=== PATIENT | female | born 1985 | race Caucasian/White ===

== ENCOUNTER 2020-12-28 04:20 | Outpatient (CLI) | payer MEDICAID, SELFPAY ==
[2020-12-28 12:46] LABS: HGB 12.8 g/dL (11.2-15.7); MCHC 32.8 % (32.0-36.0); MCV 91.3 fL (80-95); MPV 9.5 fL (8.0-11.0); Platelet Count 310 10^3/uL (130-400); RBC 4.27 10^6/uL (3.93-5.22); RDW 13.7 % (11.7-14.6); RDW-SD 46.2 fL; WBC 7.18 10^3/uL (4.4-10.8)
[2020-12-28 13:24] LABS: Hemoglobin A1C 5.5 % (<5.7)
[2020-12-28 13:28] LABS: ALT 22 U/L (14-59); AST 14 U/L (15-37); Albumin 3.8 g/dL (3.4-5.0); Alkaline Phosphatase 51 U/L (46-116); Anion Gap 6.5 mmol/L (3-11); BUN 16 mg/dL (7-18); Bilirubin, Total 0.5 mg/dL (0.2-1.0); CO2 26.5 mmol/L (21.0-32.0); CREATININE 0.8 mg/dL (0.55-1.02); Calcium 9.1 mg/dL (8.5-10.1); Chloride 107 mmol/L (98-107); Cholesterol 189 mg/dL (<200); Glucose 94 mg/dL (74-106); HDL Cholesterol 85 mg/dL (40-60); Potassium 4.4 mmol/L (3.5-5.1); Sodium 140 mmol/L (136-145); Total Protein 6.7 g/dL (6.4-8.2)
[2020-12-28 13:41] LABS: Triglyceride < 25 mg/dL (<150)
[2020-12-28 14:47] LABS: LDL CHOLESTEROL 98 mg/dL (<100)
== END 2020-12-28 04:40 ==
PROVIDERS: PCP Nurse Practitioner Family; Visit Provider Nurse Practitioner Family
DX: Z13.1 Encounter for screening for diabetes mellitus (principal); Z13.220 Encounter for screening for lipoid disorders; Z33.1 Pregnant state, incidental
CPT/HCPCS: 36415; 80053; 80061; 83721; 85027; 83036

== ENCOUNTER 2021-01-04 03:30 | Outpatient (CLI) | payer MEDICAID, SELFPAY ==
[2021-01-05 10:08] LABS: Rubella IgG Ab (UVM) Positive (See Note)
[2021-01-05 16:34] LABS: Antimullerian Hormone 4.6 ng/mL (0.15-7.5)
== END 2021-01-04 03:31 | disposition home or self-care (01) ==
LOC: LBO 03:30
PROVIDERS: PCP Nurse Practitioner Family; Visit Provider Obstetrics & Gynecology Gynecology
DX: Z31.69 Encounter for other general counseling and advice on procreation (principal)
CPT/HCPCS: 36415; 86850; 86900; 86901; 83520; 86762

== ENCOUNTER 2021-06-28 13:12 | Outpatient (REF) | payer MEDICAID, SELFPAY ==
--- NOTE | 2021-06-28 11:00 | PAPFT_PTH ---
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
== END 2021-06-28 13:13 | disposition home or self-care (01) ==
LOC: LBN 13:12
PROVIDERS: PCP Nurse Practitioner Family; Visit Provider Advanced Practice Midwife
DX: Z12.4 Encounter for screening for malignant neoplasm of cervix (principal); Z11.51 Encounter for screening for human papillomavirus (HPV)
CPT/HCPCS: 88142; 87624

== ENCOUNTER 2021-06-28 13:37 | Outpatient (REF) | payer MEDICAID, SELFPAY ==
[2021-06-28 16:39] LABS: *AMPHETAMINES SCREEN URINE Negative (Negative); *BARBITURATES SCREEN URINE Negative (Negative); *BENZODIAZEPINES SCREEN URINE Negative (Negative); Cannabinoids THC Negative (Negative); Cocaine Screen,Urine Negative (Negative); METHADONE URINE SCREEN Negative (Negative); OPIATES URINE SCREEN Negative (Negative)
[2021-06-28 16:47] LABS: Tricyclic Antidepressants Negative (Negative)
[2021-06-29 15:00] LABS: Chlamydia Result Negative (Negative); GC Result Negative (Negative)
[2021-07-01 10:11] LABS: Buprenorphine Negative ng/mL (Cutoff: 5.0); Norbuprenorphine Negative ng/mL (Cutoff: 2.5)
== END 2021-06-28 13:38 | disposition home or self-care (01) ==
LOC: LBN 13:37
PROVIDERS: PCP Nurse Practitioner Family; Visit Provider Advanced Practice Midwife
DX: O09.511 Supervision of elderly primigravida, first trimester (principal); Z11.3 Encounter for screening for infections with a predominantly sexual mode of transmission; Z3A.10 10 weeks gestation of pregnancy
CPT/HCPCS: 80307; 87491; 87591; 87086; 87480; 87510; 87660

== ENCOUNTER 2021-06-28 15:57 | Outpatient (CLI) | payer MEDICAID, SELFPAY ==
[2021-06-28 14:37] LABS: Kit/Specimen SENT
[2021-06-28 14:44] LABS: Abs Immature Grans 0.04 10^3/uL (0.0-0.06); Absolute Basophil Count 0.07 10^3/uL (0.0-0.2); Absolute Eosinophil Count 0.21 10^3/uL (0.0-0.7); Absolute Lymphocyte Count 2.36 10^3/uL (1.2-3.4); Absolute Monocyte Count 0.48 10^3/uL (0.1-0.8); Absolute Neutrophil Count 4.47 10^3/uL (1.2-6.7); Basophils % 0.9; Eosinophils % 2.8; HGB 11.7 g/dL (11.2-15.7); Immature Grans % 0.5; Lymphocytes % 30.9; MCH 29.9 pg (27.0-33.0); MCHC 33.4 % (32.0-36.0); MCV 89.5 fL (80-95); MPV 9.3 fL (8.0-11.0); Monocytes % 6.3; Neutrophils % 58.6; Nucleated RBC 0 %; Platelet Count 292 10^3/uL (130-400); RBC 3.91 10^6/uL (3.93-5.22); RDW-SD 42.5 fL; WBC 7.63 10^3/uL (4.4-10.8)
[2021-06-28 16:09] LABS: TSH (W/Ref FT4) 0.72 uIU/mL (0.36-3.74)
[2021-06-30 09:59] LABS: Hepatitis B Surface Ag Negative (Negative)
[2021-06-30 11:32] LABS: Hepatitis C Ab w Rflx HCV PCR Negative (Negative)
[2021-06-30 11:41] LABS: Varicella IgG Antibody Positive (See Note)
[2021-06-30 11:47] LABS: Rubella IgG Ab (UVM) Positive (See Note)
[2021-06-30 12:44] LABS: HIV-1/2 Ag & Ab Screen Negative (Negative)
[2021-06-30 14:32] LABS: Syphilis Total Ab w/Reflex Nonreactive (Nonreactive)
[2021-07-06 14:47] LABS: Result Summary NEGATIVE; Specimen WB Whole Blood
== END 2021-06-28 15:58 | disposition home or self-care (01) ==
LOC: LBO 15:57
PROVIDERS: PCP Nurse Practitioner Family; Visit Provider Advanced Practice Midwife
DX: O09.511 Supervision of elderly primigravida, first trimester (principal); Z36.89 Encounter for other specified antenatal screening; Z11.4 Encounter for screening for human immunodeficiency virus [HIV]; Z11.59 Encounter for screening for other viral diseases; Z01.84 Encounter for antibody response examination; G47.01 Insomnia due to medical condition
CPT/HCPCS: 36415; 86787; 86803; 86850; 86900; 86901; 87340; 87389; 81220; 84443; 85025; 86762; 86780

== ENCOUNTER 2021-08-23 03:26 | Outpatient (CLI) | payer MEDICAID, SELFPAY ==
[2021-08-24 15:38] LABS: AFP 24.7 ng/mL; Calculated age at EDD 36 years; Cigarette smoking status non-Smoker; GA used in risk estimate Scan estimate; IVF Pregnancy No; Initial or repeat testing Initial testing; Insulin dependent diabetes No; Maternal Weight 201 lbs; Number of Fetuses 1; Prev Pregnancy w/NTD No; RECOMMENDED FOLLOW UP None.; Results Summary Normal risk
== END 2021-08-23 03:27 | disposition home or self-care (01) ==
LOC: LBO 03:26
PROVIDERS: Advanced Practice Midwife; PCP Nurse Practitioner Family; Visit Provider Advanced Practice Midwife
DX: O09.512 Supervision of elderly primigravida, second trimester (principal); Z3A.18 18 weeks gestation of pregnancy
CPT/HCPCS: 36415; 82105

== ENCOUNTER 2021-10-18 03:37 | Outpatient (CLI) | payer MEDICAID, SELFPAY ==
[2021-10-18 09:32] LABS: HCT 35.1 % (36.0-46.0); HGB 11.7 g/dL (11.2-15.7); MCH 30.9 pg (27.0-33.0); MCHC 33.3 % (32.0-36.0); MCV 92.6 fL (80-95); MPV 9.3 fL (8.0-11.0); Platelet Count 246 10^3/uL (130-400); RBC 3.79 10^6/uL (3.93-5.22); RDW-SD 43.9 fL; WBC 9.43 10^3/uL (4.4-10.8)
[2021-10-18 09:54] LABS: Glucose,1 Hr (Glucola) 81 mg/dL (80-140)
== END 2021-10-18 03:38 | disposition home or self-care (01) ==
LOC: LBO 03:38
PROVIDERS: Advanced Practice Midwife; PCP Nurse Practitioner Family; Visit Provider Advanced Practice Midwife
DX: Z34.92 Encounter for supervision of normal pregnancy, unspecified, second trimester (principal)
CPT/HCPCS: 36415; 82950; 85027

== ENCOUNTER 2021-12-10 07:49 | Outpatient (CLI) | payer MEDICAID, SELFPAY ==
[2021-12-10 16:04] VITALS: BP 137/77; PULSE 86; TEMP 36.8
[2021-12-10 16:13] VITALS: BP 137/77; PULSE 86
--- NOTE | 2021-12-10 16:43 | W.OBNST ---
Date of service: 12/10/21 Time of Service: 16:43 NST Evaluation Reason for NST Reasons for Nonstress Test: GESTATIONAL HYPERTENSION Gestational Age Gestational Age in Weeks and Days: 34 Weeks and 2Days Test and Monitor Explained Test/Monitor Explained: Test Explained, Monitor Explained and Patient Verbalized Understanding Vital Signs Blood Pressure: 137/77 Pulse: 86 Temperature: 98.2 F Urine Results Urine Protein: Positive Urine Ketones: Positive Urine Glucose: Negative Urine Blood: Negative NST Information Date on Monitor: 12/10/21 Time on Monitor: 16:05 Date off Monitor: 12/10/21 Time off Monitor: 16:36 Total Time on Monitor: 31 NST Interventions: PO Hydration NST Evaluation Patient States Movement: Present FHR Baseline: 140 Variability: Moderate 6-25 bpm Accelerations: 15x15 Decelerations: None NST Results: Reactive Note NST Note Note: NST done due to mild BP elevation noted at home. Patient admits to some stress with her Sister which are getting somewhat better. Her sister will no longer be her second support person in labor though. NST is CAT I and reassuring. BP is stable. Will be seen in office 12/13/21. We reviewed pre-eclampsia warning signs and how to contact professional development instructor CNM. SAI NST Reviewed and Verified by: Negra Beaver
[2021-12-10 16:45] VITALS: BP 137/77; PULSE 86; TEMP 36.8
== END 2021-12-10 16:45 | disposition home or self-care (01) ==
LOC: BCD 07:52 → OBS 15:56
PROVIDERS: PCP Nurse Practitioner Family; Visit Provider Advanced Practice Midwife
DX: O13.3 Gestational [pregnancy-induced] hypertension without significant proteinuria, third trimester (principal); Z3A.34 34 weeks gestation of pregnancy; Z63.79 Other stressful life events affecting family and household
CPT/HCPCS: 59025

== ENCOUNTER 2021-12-17 18:18 | Outpatient (CLI) | payer MEDICAID, SELFPAY ==
[2021-12-17 19:39] VITALS: BP 131/78; PULSE 76; TEMP 36.8
[2021-12-17 20:20] LABS: HCT 35.3 % (36.0-46.0); MCH 30.9 pg (27.0-33.0); MPV 9.5 fL (8.0-11.0); Platelet Count 271 10^3/uL (130-400); RBC 3.88 10^6/uL (3.93-5.22); RDW 13.4 % (11.7-14.6); RDW-SD 43.9 fL; WBC 9.56 10^3/uL (4.4-10.8)
--- NOTE | 2021-12-17 20:26 | PDOC.NST_ITS ---
Date of service: 12/17/21 Time of Service: 20:26 NST Evaluation Reason for NST Reasons for Nonstress Test: GESTATIONAL HYPERTENSION Gestational Age Gestational Age in Weeks and Days: 35 Weeks and 2Days Test and Monitor Explained Test/Monitor Explained: Test Explained, Monitor Explained and Patient Verbalized Understanding Vital Signs Blood Pressure: 131/78 Pulse: 76 Temperature: 98.2 F NST Information Date on Monitor: 12/17/21 Time on Monitor: 19:44 NST Interventions: PO Hydration NST Evaluation Patient States Movement: Present Note NST Note Note: BP is normotensive, NST is reactive Dependent edema is noted, +1 pitting two thirds to knee, normoreflexic Pt brought her home BP machine and compared it's reading, found to be 10-15 points higher Pt threw her BP cuff away Labs were drawn as baseline Pt's TUCKER meets criteria for migraine, she declines medication Discussed appropriate salt intake, resting in lateral position x3/day Discharged to home, will call the CNM radiation protection specialist if she desires a BP check. At 35 wks, will be seen weekly in [facility] NST Reviewed and Verified by: Shanita Shafer
[2021-12-17 20:30] VITALS: BP 131/78; PULSE 76; TEMP 36.8
[2021-12-17 20:31] LABS: ALT 14 U/L (14-59); AST 18 U/L (15-37); Albumin 2.4 g/dL (3.4-5.0); Alkaline Phosphatase 227 U/L (46-116); BUN 12 mg/dL (7-18); Bilirubin, Total 0.3 mg/dL (0.2-1.0); CREATININE 0.8 mg/dL (0.55-1.02); Calcium 8.7 mg/dL (8.5-10.1); Chloride 104 mmol/L (98-107); Glucose 100 mg/dL (74-106); Potassium 3.4 mmol/L (3.5-5.1); Sodium 137 mmol/L (136-145); Total Protein 6.2 g/dL (6.4-8.2); Uric Acid 5.2 mg/dL (2.6-6.0)
[2021-12-17 20:45] LABS: COMMENT (LAB VIEW ONLY) 35.85 mg/dL; PROTEIN 10.3 mg/dL; Prot/Crea Ur Ratio 0.28
[2021-12-19 15:15] VITALS: BP 114/66; PULSE 71
== END 2021-12-17 20:32 | disposition home or self-care (01) ==
LOC: BCD 18:21 → OBS 19:38
PROVIDERS: PCP Nurse Practitioner Family; Visit Provider Advanced Practice Midwife
DX: O13.3 Gestational [pregnancy-induced] hypertension without significant proteinuria, third trimester (principal); O12.03 Gestational edema, third trimester; O99.353 Diseases of the nervous system complicating pregnancy, third trimester; G43.909 Migraine, unspecified, not intractable, without status migrainosus; Z3A.35 35 weeks gestation of pregnancy
CPT/HCPCS: 59025; 36415; 80053; 85027; 82565; 84156; 84550

== ENCOUNTER 2021-12-27 10:11 | Outpatient (CLI) | payer MEDICAID, SELFPAY ==
[2021-12-27 10:31] VITALS: BP 130/80; PULSE 74; TEMP 36.5
[2021-12-27 10:35] VITALS: BP 130/80; PULSE 74; RESP 18; TEMP 36.5
--- NOTE | 2021-12-27 11:12 | PDOC.NST_ITS ---
Date of service: 12/27/21 Time of Service: 11:00 NST Evaluation Reason for NST Reasons for Nonstress Test: GESTATIONAL HYPERTENSION Gestational Age Gestational Age in Weeks and Days: 36 Weeks and 5Days Test and Monitor Explained Test/Monitor Explained: Patient Verbalized Understanding Vital Signs Blood Pressure: 130/80 Pulse: 74 Temperature: 97.7 F NST Information Date on Monitor: 12/27/21 Time on Monitor: 10:28 Date off Monitor: 12/27/21 Time off Monitor: 11:04 Total Time on Monitor: 36 NST Interventions: PO Hydration NST Evaluation Patient States Movement: Present FHR Baseline: 135 Variability: Moderate 6-25 bpm Accelerations: 15x15 and Prolonged Decelerations: None NST Results: Reactive Note NST Note Note: NST done to elevated BP in office today and lower leg edema, non pitting. No TUCKER's visual disturbance or epigastric pain. Baby is active. Today BP at NST is 130/80. Urine dip in office showed 100 of protein. Information Assurance Officer did consult with Dr. Guerrero and plan is to do 24 hour urine labs and patient is to call with any signs or symptoms of pre-eclampsia. She will do 24 hour urine starting tomorrow and bring urine to lab Monday. Instructions on how to obtain reviewed. Pre- eclampsia warning signs reviewed. RTO as scheduled at this time. NST Reviewed and Verified by: Negra Beaver
[2021-12-27 11:15] VITALS: BP 130/80; PULSE 74; TEMP 36.5
== END 2021-12-27 11:30 | disposition home or self-care (01) ==
LOC: BCD 10:14 → OBS 10:23
PROVIDERS: PCP Nurse Practitioner Family; Visit Provider Advanced Practice Midwife
DX: O13.3 Gestational [pregnancy-induced] hypertension without significant proteinuria, third trimester (principal); O12.13 Gestational proteinuria, third trimester; O12.03 Gestational edema, third trimester; Z3A.36 36 weeks gestation of pregnancy
CPT/HCPCS: 59025

== ENCOUNTER 2021-12-27 14:53 | Outpatient (REF) | payer MEDICAID, SELFPAY ==
[2021-12-27 16:12] LABS: *AMPHETAMINES SCREEN URINE Negative (Negative); *BARBITURATES SCREEN URINE Negative (Negative); *BENZODIAZEPINES SCREEN URINE Negative (Negative); Cannabinoids THC Negative (Negative); Cocaine Screen,Urine Negative (Negative); METHADONE URINE SCREEN Negative (Negative); OPIATES URINE SCREEN Negative (Negative)
[2021-12-27 16:13] LABS: Tricyclic Antidepressants Negative (Negative)
[2021-12-30 09:58] LABS: Buprenorphine Negative ng/mL (Cutoff: 5.0); Norbuprenorphine Negative ng/mL (Cutoff: 2.5)
== END 2021-12-27 14:54 | disposition home or self-care (01) ==
LOC: LBN 14:53
PROVIDERS: PCP Nurse Practitioner Family; Visit Provider Advanced Practice Midwife
DX: Z34.93 Encounter for supervision of normal pregnancy, unspecified, third trimester (principal)
CPT/HCPCS: 80307; 87081

== ENCOUNTER 2021-12-29 03:33 | Outpatient (CLI) | payer MEDICAID, SELFPAY ==
[2021-12-29 12:51] LABS: HCT 37.7 % (36.0-46.0); HGB 12.8 g/dL (11.2-15.7); MCH 31.8 pg (27.0-33.0); MCV 93.8 fL (80-95); MPV 9.9 fL (8.0-11.0); Platelet Count 250 10^3/uL (130-400); RBC 4.02 10^6/uL (3.93-5.22); RDW 13.4 % (11.7-14.6); RDW-SD 45.9 fL; WBC 8.74 10^3/uL (4.4-10.8)
[2021-12-29 13:03] LABS: ALT 16 U/L (14-59); AST 18 U/L (15-37); Albumin 2.3 g/dL (3.4-5.0); Alkaline Phosphatase 267 U/L (46-116); Anion Gap 9.4 mmol/L (3-11); BUN 11 mg/dL (7-18); Bilirubin, Total 0.4 mg/dL (0.2-1.0); CO2 23.6 mmol/L (21.0-32.0); CREATININE 0.6 mg/dL (0.55-1.02); Calcium 8.5 mg/dL (8.5-10.1); Chloride 103 mmol/L (98-107); Glucose 90 mg/dL (74-106); LDH 160 U/L (81-234); Sodium 136 mmol/L (136-145); Total Protein 6.2 g/dL (6.4-8.2); Uric Acid 5.1 mg/dL (2.6-6.0)
== END 2021-12-29 03:34 | disposition home or self-care (01) ==
LOC: LBO 03:33
PROVIDERS: PCP Nurse Practitioner Family; Visit Provider Advanced Practice Midwife
DX: O12.13 Gestational proteinuria, third trimester (principal); R60.0 Localized edema
CPT/HCPCS: 36415; 80053; 85027; 83615; 84550

== ENCOUNTER 2021-12-29 14:06 | Outpatient (REF) | payer MEDICAID, SELFPAY ==
[2021-12-29 19:38] LABS: Creatinine,Urine 35.66 mg/dL; PROTEIN 35.1 mg/dL (0.0-11.9)
[2021-12-29 19:41] LABS: Creatinine,24hr Ur 1.53 g/24hr (0.60-1.80); TOTAL PROTEIN,URINE TIMED 1509.3 mg/24hr (0.0-149.1); Total Volume 4300 ml
== END 2021-12-29 14:07 | disposition home or self-care (01) ==
LOC: LBN 14:06
PROVIDERS: PCP Nurse Practitioner Family; Visit Provider Advanced Practice Midwife
DX: O12.13 Gestational proteinuria, third trimester (principal); R60.0 Localized edema
CPT/HCPCS: 81050; 82570; 84155

== ENCOUNTER 2021-12-30 11:29 | Observation (INO) | payer MEDICAID, SELFPAY ==
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
[2021-12-30 13:22] VITALS: BP 146/76; PULSE 85
[2021-12-30 13:24] LABS: Source Nasal/Nares
[2021-12-30 13:25] LABS: HCT 36.6 % (36.0-46.0); HGB 12.5 g/dL (11.2-15.7); MCH 31.6 pg (27.0-33.0); MCHC 34.2 % (32.0-36.0); MCV 92.4 fL (80-95); MPV 9.8 fL (8.0-11.0); Platelet Count 252 10^3/uL (130-400); RBC 3.96 10^6/uL (3.93-5.22); RDW 13.3 % (11.7-14.6); RDW-SD 45.3 fL; WBC 8.12 10^3/uL (4.4-10.8)
[2021-12-30 13:38] LABS: ALT 14 U/L (14-59); AST 18 U/L (15-37); Albumin 2.4 g/dL (3.4-5.0); Alkaline Phosphatase 277 U/L (46-116); Anion Gap 10.4 mmol/L (3-11); BUN 12 mg/dL (7-18); Bilirubin, Total 0.5 mg/dL (0.2-1.0); CO2 23.6 mmol/L (21.0-32.0); Calcium 8.7 mg/dL (8.5-10.1); Chloride 103 mmol/L (98-107); Glucose 135 mg/dL (74-106); LDH 153 U/L (81-234); Potassium 3.9 mmol/L (3.5-5.1); Sodium 137 mmol/L (136-145); Total Protein 6.3 g/dL (6.4-8.2); Uric Acid 5.5 mg/dL (2.6-6.0)
[2021-12-30 13:42] VITALS: RESP 14; TEMP 37.1
[2021-12-30 14:09] LABS: COVID-19 PCR Negative (Negative)
[2021-12-30 14:17] VITALS: BP 139/77; PULSE 83
[2021-12-30 15:09] LABS: PROTEIN 329.5 mg/dL; Prot/Crea Ur Ratio 0.89
[2021-12-30 15:50] VITALS: BP 164/79; PULSE 75
[2021-12-30 16:16] VITALS: BP 145/87; PULSE 75
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
== END 2021-12-30 16:46 | disposition home or self-care (01) ==
PROVIDERS: Admitting Provider Advanced Practice Midwife; PCP Nurse Practitioner Family; Visit Provider Advanced Practice Midwife
DX: Z3A.37 37 weeks gestation of pregnancy; O99.353 Diseases of the nervous system complicating pregnancy, third trimester; G56.03 Carpal tunnel syndrome, bilateral upper limbs; O14.13 Severe pre-eclampsia, third trimester
CPT/HCPCS: 80053; 85027; 86850; 86900; 86901; 87635; 82565; 83615; 84156; 84550; G0378

== ENCOUNTER 2021-12-30 21:40 | Inpatient (IN) | payer MEDICAID, SELFPAY ==
[2021-12-30 20:48] VITALS: BP 152/94; PULSE 95; RESP 18; TEMP 36.8; O2SAT 99
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
[2021-12-30] MEDS: Dinoprostone-CERVICAL 10 MG VSUPP VG (22:20)
[2021-12-30 22:26] VITALS: BP 146/84; PULSE 75
[2021-12-30] MEDS: Zolpidem 5 MG TAB 10 MG PO (22:39)
[2021-12-31] VITALS (14 sets, daily range): BP systolic 122–157; BP diastolic 63–91; PULSE 71–98; RESP 14–17; TEMP 36.9–37.2
[2021-12-31] MEDS: Zolpidem 5 MG TAB 10 MG PO ×2 (00:30→20:36)
[2021-12-31 10:14] LABS: HCT 37.4 % (36.0-46.0); HGB 12.7 g/dL (11.2-15.7); MCH 31.2 pg (27.0-33.0); MCV 91.9 fL (80-95); MPV 9.7 fL (8.0-11.0); Platelet Count 264 10^3/uL (130-400); RBC 4.07 10^6/uL (3.93-5.22); RDW 13.2 % (11.7-14.6); RDW-SD 44.3 fL; WBC 8.77 10^3/uL (4.4-10.8)
[2021-12-31 10:30] LABS: ALT 14 U/L (14-59); AST 19 U/L (15-37); Albumin 2.2 g/dL (3.4-5.0); Alkaline Phosphatase 273 U/L (46-116); Anion Gap 8.6 mmol/L (3-11); BUN 15 mg/dL (7-18); Bilirubin, Total 0.4 mg/dL (0.2-1.0); CO2 23.4 mmol/L (21.0-32.0); CREATININE 0.8 mg/dL (0.55-1.02); Calcium 9.1 mg/dL (8.5-10.1); Chloride 102 mmol/L (98-107); Glucose 104 mg/dL (74-106); Potassium 3.9 mmol/L (3.5-5.1); Sodium 134 mmol/L (136-145); Total Protein 6.2 g/dL (6.4-8.2)
[2021-12-31] MEDS: miSOPROStol 25 MCG TAB PO ×4 (11:06→23:04)
[2021-12-31] MEDS: Acetaminophen 500 MG TAB 1000 MG PO (11:31)
--- NOTE | 2021-12-31 16:13 | W.PM.OBNL1 ---
Date of service: 12/31/21 Time of Service: 10:30 Informed Consent Informed Consent: Induction of Labor (ripening options reviewed an helder and benefits of both) Pelvic Exam Comments: vaginal exams deferred per patient's request Contractions Monitor Mode: External Contraction Frequency(min): every 2-3 Contraction Duration(sec): 30-50 Intensity: Mild Fetus A Monitor: External (US) Heart Rate Baseline: 130 Presentation: Cephalic Variability: Moderate (6-25 BPM) Categories: Category I FHR Rhythm: Regular Accelerations: 15 X 15 Decelerations: None Amniotic Membrane Status: Intact Assessment and Plan Assessment and plan (1) Preeclampsia: Status: Acute Assessment and plan: Labs repeated and within normal ranges. B.P. not in severe range (2) Elective induction of labor planned: Status: Acute Assessment and plan: Reviewed plan for continued cervical ripening with Dr Juarez. Cervidil has been removed and will start misporostol 25 mg PO every 4 hours and anticipate . Comfort measures. Will re-assess for cervical change when her condition warrants. Deysi has requested that cervical exams are done only if absolutely necessary. Objective Abnormal lab results 12/31/21 Range/Units 10:05 Sodium 134 L (136-145) mmol/L Alkaline Phosphatase 273 H (46-116) U/L Total Protein 6.2 L (6.4-8.2) g/dL Albumin 2.2 L (3.4-5.0) g/dL Temp Pulse Resp BP Pulse Ox 98.9 F 80 17 157/85 H 99 12/31/21 15:08 12/31/21 15:08 12/31/21 15:08 12/31/21 15:08 12/30/21 20:48 Laboratory Results WBC 8.77 10^3/uL (4.4-10.8) 12/31/21 10:05 RBC 4.07 10^6/uL (3.93-5.22) 12/31/21 10:05 Hgb 12.7 g/dL (11.2-15.7) 12/31/21 10:05 Hct 37.4 % (36.0-46.0) 12/31/21 10:05 MCV 91.9 fL (80-95) 12/31/21 10:05 MCH 31.2 pg (27.0-33.0) 12/31/21 10:05 MCHC 34.0 % (32.0-36.0) 12/31/21 10:05 RDW 13.2 % (11.7-14.6) 12/31/21 10:05 Plt Count 264 10^3/uL (130-400) 12/31/21 10:05 MPV 9.7 fL (8.0-11.0) 12/31/21 10:05 Sodium 134 mmol/L (136-145) L 12/31/21 10:05 Potassium 3.9 mmol/L (3.5-5.1) 12/31/21 10:05 Chloride 102 mmol/L (98-107) 12/31/21 10:05 Carbon Dioxide 23.4 mmol/L (21.0-32.0) 12/31/21 10:05 Anion Gap 8.6 mmol/L (3-11) 12/31/21 10:05 BUN 15 mg/dL (7-18) 12/31/21 10:05 Creatinine 0.8 mg/dL (0.55-1.02) 12/31/21 10:05 Estimated GFR/1.73 m2 >= 60.00 (mL/min/1.73m2) 12/31/21 10:05 Glucose 104 mg/dL (74-106) 12/31/21 10:05 Uric Acid 5.0 mg/dL (2.6-6.0) 12/31/21 10:05 Calcium 9.1 mg/dL (8.5-10.1) 12/31/21 10:05 Total Bilirubin 0.4 mg/dL (0.2-1.0) 12/31/21 10:05 AST 19 U/L (15-37) 12/31/21 10:05 ALT 14 U/L (14-59) 12/31/21 10:05 Alkaline Phosphatase 273 U/L (46-116) H 12/31/21 10:05 Total Protein 6.2 g/dL (6.4-8.2) L 12/31/21 10:05 Albumin 2.2 g/dL (3.4-5.0) L 12/31/21 10:05 Subjective Patient Reports: No new Complaints Interval history since last seen: Deysi slept well with ambien. She is experiencing mild contractions. BP 120-140/70 - 80 Results Hemoglobin/Hematocrit: Hgb 12.7 g/dL (11.2-15.7) 12/31/21 10:05 Hct 37.4 % (36.0-46.0) 12/31/21 10:05 Abnormal Lab Findings: Abnormal Labs 12/31/21 10:05 Sodium 134 L Alkaline Phosphatase 273 H Total Protein 6.2 L Albumin 2.2 L
--- NOTE | 2021-12-31 16:18 | W.PM.OBNL1 ---
Date of service: 12/31/21 Time of Service: 16:18 Informed Consent Informed Consent: Induction of Labor (ripening options reviewed an helder and benefits of both) Pelvic Exam Comments: deferred per patient request Contractions Monitor Mode: External Contraction Frequency(min): 2-3 Intensity: Mild Fetus A Monitor: External (US) Heart Rate Baseline: 150 Presentation: Cephalic Variability: Moderate (6-25 BPM) Categories: Category I FHR Rhythm: Regular Accelerations: 15 X 15 Decelerations: None Amniotic Membrane Status: Intact Assessment and Plan Assessment and plan (1) Elective induction of labor planned: Status: Acute Assessment and plan: continue cervical ripening (2) Preeclampsia: Status: Acute Assessment and plan: B.P. is not in severe range. normoreflexive. Continue induction of labor. Objective Abnormal lab results 12/31/21 Range/Units 10:05 Sodium 134 L (136-145) mmol/L Alkaline Phosphatase 273 H (46-116) U/L Total Protein 6.2 L (6.4-8.2) g/dL Albumin 2.2 L (3.4-5.0) g/dL Temp Pulse Resp BP Pulse Ox 98.9 F 80 17 157/85 H 99 12/31/21 15:08 12/31/21 15:08 12/31/21 15:08 12/31/21 15:08 12/30/21 20:48 Laboratory Results WBC 8.77 10^3/uL (4.4-10.8) 12/31/21 10:05 RBC 4.07 10^6/uL (3.93-5.22) 12/31/21 10:05 Hgb 12.7 g/dL (11.2-15.7) 12/31/21 10:05 Hct 37.4 % (36.0-46.0) 12/31/21 10:05 MCV 91.9 fL (80-95) 12/31/21 10:05 MCH 31.2 pg (27.0-33.0) 12/31/21 10:05 MCHC 34.0 % (32.0-36.0) 12/31/21 10:05 RDW 13.2 % (11.7-14.6) 12/31/21 10:05 Plt Count 264 10^3/uL (130-400) 12/31/21 10:05 MPV 9.7 fL (8.0-11.0) 12/31/21 10:05 Sodium 134 mmol/L (136-145) L 12/31/21 10:05 Potassium 3.9 mmol/L (3.5-5.1) 12/31/21 10:05 Chloride 102 mmol/L (98-107) 12/31/21 10:05 Carbon Dioxide 23.4 mmol/L (21.0-32.0) 12/31/21 10:05 Anion Gap 8.6 mmol/L (3-11) 12/31/21 10:05 BUN 15 mg/dL (7-18) 12/31/21 10:05 Creatinine 0.8 mg/dL (0.55-1.02) 12/31/21 10:05 Estimated GFR/1.73 m2 >= 60.00 (mL/min/1.73m2) 12/31/21 10:05 Glucose 104 mg/dL (74-106) 12/31/21 10:05 Uric Acid 5.0 mg/dL (2.6-6.0) 12/31/21 10:05 Calcium 9.1 mg/dL (8.5-10.1) 12/31/21 10:05 Total Bilirubin 0.4 mg/dL (0.2-1.0) 12/31/21 10:05 AST 19 U/L (15-37) 12/31/21 10:05 ALT 14 U/L (14-59) 12/31/21 10:05 Alkaline Phosphatase 273 U/L (46-116) H 12/31/21 10:05 Total Protein 6.2 g/dL (6.4-8.2) L 12/31/21 10:05 Albumin 2.2 g/dL (3.4-5.0) L 12/31/21 10:05 Subjective Patient Reports: No new Complaints Interval history since last seen: second dose of oral misoprostol administered at 1500. Deysi is resting comfortably. ERICH 139/91, 133/70 Results Hemoglobin/Hematocrit: Hgb 12.7 g/dL (11.2-15.7) 12/31/21 10:05 Hct 37.4 % (36.0-46.0) 12/31/21 10:05 Abnormal Lab Findings: Abnormal Labs 12/31/21 10:05 Sodium 134 L Alkaline Phosphatase 273 H Total Protein 6.2 L Albumin 2.2 L
[2022-01-01] VITALS (162 sets, daily range): BP systolic 119–157; BP diastolic 59–85; PULSE 0–119; RESP 16–18; TEMP 36.7–37
[2022-01-01] MEDS: miSOPROStol 25 MCG TAB PO ×2 (03:28→07:32)
--- NOTE | 2022-01-01 07:31 | W.PM.OBNL1 ---
Date of service: 01/01/22 Time of Service: 08:12 Informed Consent Informed Consent: Induction of Labor (ripening options reviewed an helder and benefits of both) Pelvic Exam Dilation: 0 Effacement (%): 25 station: -1 Cervix Position: anterior Vaginal Exam Presentation: Cephalic Contractions Monitor Mode: External Contraction Frequency(min): every 2-3 Intensity: Mild Fetus A Monitor: External (US) Heart Rate Baseline: 140 Presentation: Cephalic Variability: Moderate (6-25 BPM) Categories: Category I FHR Rhythm: Regular Accelerations: 15 X 15 Decelerations: None Amniotic Membrane Status: Intact Assessment and Plan Assessment and plan (1) Elective induction of labor planned: Status: Acute Assessment and plan: sixth dose of misoprostol given this morning. 25 mg Po and 25 PV. Deysi's questions answered Re; next steps of the induction. Will re-evaluate labor pattern at 1200 and consider pitocin infusion Plan reviewed with dr. Gunderson. (2) Preeclampsia: Status: Acute Assessment and plan: preeclampsia labs this morning Objective Abnormal lab results 12/31/21 Range/Units 10:05 Sodium 134 L (136-145) mmol/L Alkaline Phosphatase 273 H (46-116) U/L Total Protein 6.2 L (6.4-8.2) g/dL Albumin 2.2 L (3.4-5.0) g/dL Temp Pulse Resp BP Pulse Ox 98.6 F 79 17 119/59 L 99 12/31/21 21:58 01/01/22 05:31 12/31/21 15:08 01/01/22 05:31 12/30/21 20:48 Laboratory Results WBC 8.77 10^3/uL (4.4-10.8) 12/31/21 10:05 RBC 4.07 10^6/uL (3.93-5.22) 12/31/21 10:05 Hgb 12.7 g/dL (11.2-15.7) 12/31/21 10:05 Hct 37.4 % (36.0-46.0) 12/31/21 10:05 MCV 91.9 fL (80-95) 12/31/21 10:05 MCH 31.2 pg (27.0-33.0) 12/31/21 10:05 MCHC 34.0 % (32.0-36.0) 12/31/21 10:05 RDW 13.2 % (11.7-14.6) 12/31/21 10:05 Plt Count 264 10^3/uL (130-400) 12/31/21 10:05 MPV 9.7 fL (8.0-11.0) 12/31/21 10:05 Sodium 134 mmol/L (136-145) L 12/31/21 10:05 Potassium 3.9 mmol/L (3.5-5.1) 12/31/21 10:05 Chloride 102 mmol/L (98-107) 12/31/21 10:05 Carbon Dioxide 23.4 mmol/L (21.0-32.0) 12/31/21 10:05 Anion Gap 8.6 mmol/L (3-11) 12/31/21 10:05 BUN 15 mg/dL (7-18) 12/31/21 10:05 Creatinine 0.8 mg/dL (0.55-1.02) 12/31/21 10:05 Estimated GFR/1.73 m2 >= 60.00 (mL/min/1.73m2) 12/31/21 10:05 Glucose 104 mg/dL (74-106) 12/31/21 10:05 Uric Acid 5.0 mg/dL (2.6-6.0) 12/31/21 10:05 Calcium 9.1 mg/dL (8.5-10.1) 12/31/21 10:05 Total Bilirubin 0.4 mg/dL (0.2-1.0) 12/31/21 10:05 AST 19 U/L (15-37) 12/31/21 10:05 ALT 14 U/L (14-59) 12/31/21 10:05 Alkaline Phosphatase 273 U/L (46-116) H 12/31/21 10:05 Total Protein 6.2 g/dL (6.4-8.2) L 12/31/21 10:05 Albumin 2.2 g/dL (3.4-5.0) L 12/31/21 10:05 Subjective Patient Reports: No new Complaints Interval history since last seen: Deysi slept well last night with ambien tablet. She has many questions about the plan for tooday. She reports that she is aware of contractions but she is very comfortable. reflexes +2. Results Hemoglobin/Hematocrit: Hgb 12.7 g/dL (11.2-15.7) 12/31/21 10:05 Hct 37.4 % (36.0-46.0) 12/31/21 10:05 Abnormal Lab Findings: Abnormal Labs 12/31/21 10:05 Sodium 134 L Alkaline Phosphatase 273 H Total Protein 6.2 L Albumin 2.2 L
[2022-01-01 07:50] LABS: HCT 38.4 % (36.0-46.0); MCHC 33.9 % (32.0-36.0); MCV 91.6 fL (80-95); MPV 9.6 fL (8.0-11.0); Platelet Count 257 10^3/uL (130-400); RBC 4.19 10^6/uL (3.93-5.22); RDW 13.2 % (11.7-14.6); RDW-SD 43.9 fL; WBC 9.97 10^3/uL (4.4-10.8)
[2022-01-01] MEDS: miSOPROStol 25 MCG TAB VG (08:00)
[2022-01-01 08:04] LABS: ALT 13 U/L (14-59); AST 17 U/L (15-37); Albumin 2.2 g/dL (3.4-5.0); Alkaline Phosphatase 295 U/L (46-116); Anion Gap 10.1 mmol/L (3-11); BUN 14 mg/dL (7-18); Bilirubin, Total 0.5 mg/dL (0.2-1.0); CO2 21.9 mmol/L (21.0-32.0); CREATININE 0.7 mg/dL (0.55-1.02); Calcium 8.5 mg/dL (8.5-10.1); Chloride 103 mmol/L (98-107); Glucose 74 mg/dL (74-106); Potassium 3.9 mmol/L (3.5-5.1); Sodium 135 mmol/L (136-145); Total Protein 6.2 g/dL (6.4-8.2); Uric Acid 4.8 mg/dL (2.6-6.0)
[2022-01-01] MEDS: Acetaminophen 500 MG TAB 1000 MG PO (08:10)
--- NOTE | 2022-01-01 16:21 | W.PM.OBNL1 ---
Date of service: 01/01/22 Time of Service: 16:21 Informed Consent Informed Consent: Induction of Labor (pitocin induction vs. further ripening with cevical ripening balloon were offered) Contractions Monitor Mode: External Contraction Frequency(min): every 2-4 Contraction Duration(sec): 20-50 Intensity: Mild Fetus A Monitor: External (US) Heart Rate Baseline: 140 Variability: Moderate (6-25 BPM) Categories: Category I FHR Rhythm: Regular Accelerations: 15 X 15 Decelerations: None Amniotic Membrane Status: Intact Assessment and Plan Assessment and plan (1) Elective induction of labor planned: Status: Acute Assessment and plan: Deysi requested at 1300 to take a shower and nap which she did do. She awoke with mild contractions. The option of pitocin or cervical ripening balloon were discussed. Deysi would like to proceed with pitocin at this time. Will assess response to pitocin and re-assess for cervical change when appropriate. Deysi declines cervical exams unless necessary and due to no discomfort, I will defer for now. Plan for pitocin infusion was reviewed with Dr. Gunderson earlier who agrees (2) Preeclampsia: Status: Acute Assessment and plan: Preeclampsia panel WNL Objective Abnormal lab results 01/01/22 Range/Units 07:45 Sodium 135 L (136-145) mmol/L ALT 13 L (14-59) U/L Alkaline Phosphatase 295 H (46-116) U/L Total Protein 6.2 L (6.4-8.2) g/dL Albumin 2.2 L (3.4-5.0) g/dL Temp Pulse Resp BP Pulse Ox 98.1 F 0 L 16 125/75 99 01/01/22 12:18 01/01/22 16:16 01/01/22 12:18 01/01/22 12:18 12/30/21 20:48 Laboratory Results WBC 9.97 10^3/uL (4.4-10.8) 01/01/22 07:45 RBC 4.19 10^6/uL (3.93-5.22) 01/01/22 07:45 Hgb 13.0 g/dL (11.2-15.7) 01/01/22 07:45 Hct 38.4 % (36.0-46.0) 01/01/22 07:45 MCV 91.6 fL (80-95) 01/01/22 07:45 MCH 31.0 pg (27.0-33.0) 01/01/22 07:45 MCHC 33.9 % (32.0-36.0) 01/01/22 07:45 RDW 13.2 % (11.7-14.6) 01/01/22 07:45 Plt Count 257 10^3/uL (130-400) 01/01/22 07:45 MPV 9.6 fL (8.0-11.0) 01/01/22 07:45 Sodium 135 mmol/L (136-145) L 01/01/22 07:45 Potassium 3.9 mmol/L (3.5-5.1) 01/01/22 07:45 Chloride 103 mmol/L (98-107) 01/01/22 07:45 Carbon Dioxide 21.9 mmol/L (21.0-32.0) 01/01/22 07:45 Anion Gap 10.1 mmol/L (3-11) 01/01/22 07:45 BUN 14 mg/dL (7-18) 01/01/22 07:45 Creatinine 0.7 mg/dL (0.55-1.02) 01/01/22 07:45 Estimated GFR/1.73 m2 >= 60.00 (mL/min/1.73m2) 01/01/22 07:45 Glucose 74 mg/dL (74-106) 01/01/22 07:45 Uric Acid 4.8 mg/dL (2.6-6.0) 01/01/22 07:45 Calcium 8.5 mg/dL (8.5-10.1) 01/01/22 07:45 Total Bilirubin 0.5 mg/dL (0.2-1.0) 01/01/22 07:45 AST 17 U/L (15-37) 01/01/22 07:45 ALT 13 U/L (14-59) L 01/01/22 07:45 Alkaline Phosphatase 295 U/L (46-116) H 01/01/22 07:45 Total Protein 6.2 g/dL (6.4-8.2) L 01/01/22 07:45 Albumin 2.2 g/dL (3.4-5.0) L 01/01/22 07:45 Subjective Patient Reports: No new Complaints Interval history since last seen: B.P. 124/68-125/75. Took a shower and had a nap. Results Hemoglobin/Hematocrit: Hgb 13.0 g/dL (11.2-15.7) 01/01/22 07:45 Hct 38.4 % (36.0-46.0) 01/01/22 07:45 Abnormal Lab Findings: Abnormal Labs 12/31/21 01/01/22 10:05 07:45 Sodium 134 L 135 L ALT 13 L Alkaline Phosphatase 273 H 295 H Total Protein 6.2 L 6.2 L Albumin 2.2 L 2.2 L
[2022-01-01] MEDS: Lactated Ringers 1,000 ML 125 ML IV (17:10)
[2022-01-01] MEDS: Oxytocin/Normal Saline 30 UNIT/500 ML BAG 2 UNITS IV (17:10)
--- NOTE | 2022-01-01 20:26 | W.PM.OBNL1 ---
Date of service: 01/01/22 Time of Service: 20:26 Informed Consent Informed Consent: Induction of Labor (pitocin induction vs. further ripening with cevical ripening balloon were offered) Contractions Monitor Mode: External Contraction Frequency(min): every 2-4 Contraction Duration(sec): 30-50 Intensity: Mild Fetus A Monitor: External (US) Heart Rate Baseline: 140 Variability: Moderate (6-25 BPM) Categories: Category I FHR Rhythm: Regular Characteristics: Normal Accelerations: 15 X 15 Decelerations: None Amniotic Membrane Status: Intact Assessment and Plan Assessment and plan (1) Elective induction of labor planned: Status: Acute Assessment and plan: continue pitocin per protocol for induction of labor. Comfort measures. Deysi requests ambien for sleep and will administer that at HS. I discussed cervical ripening balloon with pitocin with Deysi and she declines the balloon due to her concerns about discomfort with the previous cervical exam. (2) Preeclampsia: Status: Acute Assessment and plan: Continue to observe B.P. readings. Will plan to repeat labs tomorrow. Objective Abnormal lab results 01/01/22 Range/Units 07:45 Sodium 135 L (136-145) mmol/L ALT 13 L (14-59) U/L Alkaline Phosphatase 295 H (46-116) U/L Total Protein 6.2 L (6.4-8.2) g/dL Albumin 2.2 L (3.4-5.0) g/dL Temp Pulse Resp BP Pulse Ox 98.4 F 98 H 18 142/83 H 99 01/01/22 19:00 01/01/22 20:24 01/01/22 19:00 01/01/22 19:12 12/30/21 20:48 Laboratory Results WBC 9.97 10^3/uL (4.4-10.8) 01/01/22 07:45 RBC 4.19 10^6/uL (3.93-5.22) 01/01/22 07:45 Hgb 13.0 g/dL (11.2-15.7) 01/01/22 07:45 Hct 38.4 % (36.0-46.0) 01/01/22 07:45 MCV 91.6 fL (80-95) 01/01/22 07:45 MCH 31.0 pg (27.0-33.0) 01/01/22 07:45 MCHC 33.9 % (32.0-36.0) 01/01/22 07:45 RDW 13.2 % (11.7-14.6) 01/01/22 07:45 Plt Count 257 10^3/uL (130-400) 01/01/22 07:45 MPV 9.6 fL (8.0-11.0) 01/01/22 07:45 Sodium 135 mmol/L (136-145) L 01/01/22 07:45 Potassium 3.9 mmol/L (3.5-5.1) 01/01/22 07:45 Chloride 103 mmol/L (98-107) 01/01/22 07:45 Carbon Dioxide 21.9 mmol/L (21.0-32.0) 01/01/22 07:45 Anion Gap 10.1 mmol/L (3-11) 01/01/22 07:45 BUN 14 mg/dL (7-18) 01/01/22 07:45 Creatinine 0.7 mg/dL (0.55-1.02) 01/01/22 07:45 Estimated GFR/1.73 m2 >= 60.00 (mL/min/1.73m2) 01/01/22 07:45 Glucose 74 mg/dL (74-106) 01/01/22 07:45 Uric Acid 4.8 mg/dL (2.6-6.0) 01/01/22 07:45 Calcium 8.5 mg/dL (8.5-10.1) 01/01/22 07:45 Total Bilirubin 0.5 mg/dL (0.2-1.0) 01/01/22 07:45 AST 17 U/L (15-37) 01/01/22 07:45 ALT 13 U/L (14-59) L 01/01/22 07:45 Alkaline Phosphatase 295 U/L (46-116) H 01/01/22 07:45 Total Protein 6.2 g/dL (6.4-8.2) L 01/01/22 07:45 Albumin 2.2 g/dL (3.4-5.0) L 01/01/22 07:45 Subjective Patient Reports: No new Complaints Interval history since last seen: Pitocin has been running for 3 1/2 hours and is at 12 mu/min. Deysi is resting comfortably on her side. 1+ pitting edema is noted in her feet and ankles. She reports very mild cramping. SVE is deferred per Deysi's request. B.P. range is 135-142/82-85. Deysi had a headache this morning and last evening which was relieved by tylenol 1000 mg PO. Results Hemoglobin/Hematocrit: Hgb 13.0 g/dL (11.2-15.7) 01/01/22 07:45 Hct 38.4 % (36.0-46.0) 01/01/22 07:45 Abnormal Lab Findings: Abnormal Labs 12/31/21 01/01/22 10:05 07:45 Sodium 134 L 135 L ALT 13 L Alkaline Phosphatase 273 H 295 H Total Protein 6.2 L 6.2 L Albumin 2.2 L 2.2 L
[2022-01-01] MEDS: Zolpidem 10 MG TAB PO (21:17)
[2022-01-02] VITALS (374 sets, daily range): BP systolic 120–175; BP diastolic 66–109; PULSE 0–123; RESP 18; TEMP 36.7–37.3
[2022-01-02] MEDS: Lactated Ringers 1,000 ML 125 ML IV (01:15)
--- NOTE | 2022-01-02 07:19 | W.PM.OBNL1 ---
Date of service: 01/02/22 Time of Service: 07:52 Informed Consent Informed Consent: Induction of Labor (continuing pitocin induction vs. further ripening with cevical ripening with misoprostol) Pelvic Exam Dilation: 0.5 Effacement (%): 25 station: -2 Cervix Position: posterior Consistency: medium Vaginal Exam Presentation: Cephalic Contractions Monitor Mode: External Contraction Frequency(min): every 3 Contraction Duration(sec): 30-60 Intensity: Mild Fetus A Monitor: External (US) Heart Rate Baseline: 145 Presentation: Cephalic Variability: Moderate (6-25 BPM) Categories: Category I Accelerations: 15 X 15 Decelerations: Variable Recurrence: Episodic (occasional variable decelerations) Amniotic Membrane Status: Intact Assessment and Plan Assessment and plan (1) Elective induction of labor planned: Status: Acute Assessment and plan: Reviewed options with Deysi including cervical ripening balloon and misoprostol. Deysi feels achey and would like to take a bath. Will attempt balloon insertion and will start msioprostol after she takes a bath. (2) Preeclampsia: Status: Acute Assessment and plan: consult with Dr. Gunderson re Deysi's progress. She agrees with the plan for misoprostol and balloon. Serum labs are not indicated at this time. Objective Abnormal lab results 01/01/22 Range/Units 07:45 Sodium 135 L (136-145) mmol/L ALT 13 L (14-59) U/L Alkaline Phosphatase 295 H (46-116) U/L Total Protein 6.2 L (6.4-8.2) g/dL Albumin 2.2 L (3.4-5.0) g/dL Temp Pulse Resp BP Pulse Ox 98.1 F 106 H 18 140/77 99 01/02/22 06:25 01/02/22 07:18 01/02/22 06:25 01/02/22 06:25 12/30/21 20:48 Laboratory Results WBC 9.97 10^3/uL (4.4-10.8) 01/01/22 07:45 RBC 4.19 10^6/uL (3.93-5.22) 01/01/22 07:45 Hgb 13.0 g/dL (11.2-15.7) 01/01/22 07:45 Hct 38.4 % (36.0-46.0) 01/01/22 07:45 MCV 91.6 fL (80-95) 01/01/22 07:45 MCH 31.0 pg (27.0-33.0) 01/01/22 07:45 MCHC 33.9 % (32.0-36.0) 01/01/22 07:45 RDW 13.2 % (11.7-14.6) 01/01/22 07:45 Plt Count 257 10^3/uL (130-400) 01/01/22 07:45 MPV 9.6 fL (8.0-11.0) 01/01/22 07:45 Sodium 135 mmol/L (136-145) L 01/01/22 07:45 Potassium 3.9 mmol/L (3.5-5.1) 01/01/22 07:45 Chloride 103 mmol/L (98-107) 01/01/22 07:45 Carbon Dioxide 21.9 mmol/L (21.0-32.0) 01/01/22 07:45 Anion Gap 10.1 mmol/L (3-11) 01/01/22 07:45 BUN 14 mg/dL (7-18) 01/01/22 07:45 Creatinine 0.7 mg/dL (0.55-1.02) 01/01/22 07:45 Estimated GFR/1.73 m2 >= 60.00 (mL/min/1.73m2) 01/01/22 07:45 Glucose 74 mg/dL (74-106) 01/01/22 07:45 Uric Acid 4.8 mg/dL (2.6-6.0) 01/01/22 07:45 Calcium 8.5 mg/dL (8.5-10.1) 01/01/22 07:45 Total Bilirubin 0.5 mg/dL (0.2-1.0) 01/01/22 07:45 AST 17 U/L (15-37) 01/01/22 07:45 ALT 13 U/L (14-59) L 01/01/22 07:45 Alkaline Phosphatase 295 U/L (46-116) H 01/01/22 07:45 Total Protein 6.2 g/dL (6.4-8.2) L 01/01/22 07:45 Albumin 2.2 g/dL (3.4-5.0) L 01/01/22 07:45 Subjective Patient Reports: No new Complaints Interval history since last seen: Pitocin is at 20 mu/min and has been running for 14 hours. Deysi was able to sleep with ambien. She awoke with a back ache and menstrual-like cramping. She is feeling very discouraged. B.P. 140-157/72-87. 1+ pitting edema of feet and ankles. She denies headache this morning. patellar reflexes +2, no clonus. Results Hemoglobin/Hematocrit: Hgb 13.0 g/dL (11.2-15.7) 01/01/22 07:45 Hct 38.4 % (36.0-46.0) 01/01/22 07:45 Abnormal Lab Findings: Abnormal Labs 12/31/21 01/01/22 10:05 07:45 Sodium 134 L 135 L ALT 13 L Alkaline Phosphatase 273 H 295 H Total Protein 6.2 L 6.2 L Albumin 2.2 L 2.2 L
--- NOTE | 2022-01-02 10:41 | W.PM.OBNL1 ---
Date of service: 01/02/22 Time of Service: 10:41 Informed Consent Informed Consent: Induction of Labor (continuing pitocin induction vs. further ripening with cevical ripening with misoprostol) Pelvic Exam Dilation: 0.5 Effacement (%): 50 station: -2 Cervix Position: posterior Consistency: medium Vaginal Exam Presentation: Cephalic (position confirmed by bedside US) Contractions Monitor Mode: External Contraction Frequency(min): every 3-5 Intensity: Mild Fetus A Monitor: External (US) Heart Rate Baseline: 145 Presentation: Cephalic Variability: Moderate (6-25 BPM) Categories: Category I FHR Rhythm: Regular Accelerations: 15 X 15 Decelerations: None Amniotic Membrane Status: Intact Assessment and Plan Assessment and plan (1) Elective induction of labor planned: Status: Acute Assessment and plan: continue with cervical ripening. Will administer misoprostol 25 mcg when she is feeling better after the balloon insertion. (2) Preeclampsia: Status: Acute Assessment and plan: B.P. 157/90 after balloon placed and she was experiencing more severe cramping. Objective Temp Pulse Resp BP Pulse Ox 98.1 F 75 18 140/77 99 01/02/22 06:25 01/02/22 10:38 01/02/22 06:25 01/02/22 06:25 12/30/21 20:48 Laboratory Results WBC 9.97 10^3/uL (4.4-10.8) 01/01/22 07:45 RBC 4.19 10^6/uL (3.93-5.22) 01/01/22 07:45 Hgb 13.0 g/dL (11.2-15.7) 01/01/22 07:45 Hct 38.4 % (36.0-46.0) 01/01/22 07:45 MCV 91.6 fL (80-95) 01/01/22 07:45 MCH 31.0 pg (27.0-33.0) 01/01/22 07:45 MCHC 33.9 % (32.0-36.0) 01/01/22 07:45 RDW 13.2 % (11.7-14.6) 01/01/22 07:45 Plt Count 257 10^3/uL (130-400) 01/01/22 07:45 MPV 9.6 fL (8.0-11.0) 01/01/22 07:45 Sodium 135 mmol/L (136-145) L 01/01/22 07:45 Potassium 3.9 mmol/L (3.5-5.1) 01/01/22 07:45 Chloride 103 mmol/L (98-107) 01/01/22 07:45 Carbon Dioxide 21.9 mmol/L (21.0-32.0) 01/01/22 07:45 Anion Gap 10.1 mmol/L (3-11) 01/01/22 07:45 BUN 14 mg/dL (7-18) 01/01/22 07:45 Creatinine 0.7 mg/dL (0.55-1.02) 01/01/22 07:45 Estimated GFR/1.73 m2 >= 60.00 (mL/min/1.73m2) 01/01/22 07:45 Glucose 74 mg/dL (74-106) 01/01/22 07:45 Uric Acid 4.8 mg/dL (2.6-6.0) 01/01/22 07:45 Calcium 8.5 mg/dL (8.5-10.1) 01/01/22 07:45 Total Bilirubin 0.5 mg/dL (0.2-1.0) 01/01/22 07:45 AST 17 U/L (15-37) 01/01/22 07:45 ALT 13 U/L (14-59) L 01/01/22 07:45 Alkaline Phosphatase 295 U/L (46-116) H 01/01/22 07:45 Total Protein 6.2 g/dL (6.4-8.2) L 01/01/22 07:45 Albumin 2.2 g/dL (3.4-5.0) L 01/01/22 07:45 Subjective Patient Reports: No new Complaints Interval history since last seen: Deysi had a bath and is feeling better. She and her Danish agree to trying the cervical ripening balloon and that was inserted with some difficulty accessing the cervical os due to posterior position. Results Hemoglobin/Hematocrit: Hgb 13.0 g/dL (11.2-15.7) 01/01/22 07:45 Hct 38.4 % (36.0-46.0) 01/01/22 07:45 Abnormal Lab Findings: Abnormal Labs 12/31/21 01/01/22 10:05 07:45 Sodium 134 L 135 L ALT 13 L Alkaline Phosphatase 273 H 295 H Total Protein 6.2 L 6.2 L Albumin 2.2 L 2.2 L Procedure Procedures: Other (cervical ripening balloon attempted with speculum visualization. Unable to visualize the os due to posterior position of the cervix. The os was palpated and the balloon was guided along my finger and secured with 600 cc fluid in each balloon. Deysi tolerated this well by using nitrous oxide. )
[2022-01-02] MEDS: miSOPROStol 25 MCG TAB PO (11:32)
--- NOTE | 2022-01-02 14:59 | W.PM.OBNL1 ---
Date of service: 01/02/22 Time of Service: 15:00 Informed Consent Informed Consent: Induction of Labor (continuing pitocin induction vs. further ripening with cevical ripening with misoprostol) Contractions Monitor Mode: External Contraction Frequency(min): every 3-5 Contraction Duration(sec): 50-60 Intensity: Mild Fetus A Monitor: External (US) Heart Rate Baseline: 150 Presentation: Cephalic Variability: Moderate (6-25 BPM) Categories: Category I FHR Rhythm: Regular Accelerations: 15 X 15 Decelerations: None Amniotic Membrane Status: Intact Assessment and Plan Assessment and plan (1) Elective induction of labor planned: Status: Acute Assessment and plan: continue misoprostol PO for cervical ripening. Will administer 50 mcg PO for next dose. Comfort measures. Anticipate . (2) Preeclampsia: Status: Acute Objective Temp Pulse Resp BP Pulse Ox 98.4 F 77 18 135/73 99 01/02/22 11:08 01/02/22 14:58 01/02/22 11:08 01/02/22 14:58 12/30/21 20:48 Laboratory Results WBC 9.97 10^3/uL (4.4-10.8) 01/01/22 07:45 RBC 4.19 10^6/uL (3.93-5.22) 01/01/22 07:45 Hgb 13.0 g/dL (11.2-15.7) 01/01/22 07:45 Hct 38.4 % (36.0-46.0) 01/01/22 07:45 MCV 91.6 fL (80-95) 01/01/22 07:45 MCH 31.0 pg (27.0-33.0) 01/01/22 07:45 MCHC 33.9 % (32.0-36.0) 01/01/22 07:45 RDW 13.2 % (11.7-14.6) 01/01/22 07:45 Plt Count 257 10^3/uL (130-400) 01/01/22 07:45 MPV 9.6 fL (8.0-11.0) 01/01/22 07:45 Sodium 135 mmol/L (136-145) L 01/01/22 07:45 Potassium 3.9 mmol/L (3.5-5.1) 01/01/22 07:45 Chloride 103 mmol/L (98-107) 01/01/22 07:45 Carbon Dioxide 21.9 mmol/L (21.0-32.0) 01/01/22 07:45 Anion Gap 10.1 mmol/L (3-11) 01/01/22 07:45 BUN 14 mg/dL (7-18) 01/01/22 07:45 Creatinine 0.7 mg/dL (0.55-1.02) 01/01/22 07:45 Estimated GFR/1.73 m2 >= 60.00 (mL/min/1.73m2) 01/01/22 07:45 Glucose 74 mg/dL (74-106) 01/01/22 07:45 Uric Acid 4.8 mg/dL (2.6-6.0) 01/01/22 07:45 Calcium 8.5 mg/dL (8.5-10.1) 01/01/22 07:45 Total Bilirubin 0.5 mg/dL (0.2-1.0) 01/01/22 07:45 AST 17 U/L (15-37) 01/01/22 07:45 ALT 13 U/L (14-59) L 01/01/22 07:45 Alkaline Phosphatase 295 U/L (46-116) H 01/01/22 07:45 Total Protein 6.2 g/dL (6.4-8.2) L 01/01/22 07:45 Albumin 2.2 g/dL (3.4-5.0) L 01/01/22 07:45 Vital Signs Reviewed: Yes Subjective Patient Reports: No new Complaints Interval history since last seen: Deysi took a nap and reported that she slept well. She received one dose of misoprostol 3 1/2 hours ago. She is using nitrous oxide occasionally on the last two contractions. B.P. is currently 135/78. She had B.P. 150-160/80-109 when she was ambulating and experiencing discomfort after the balloon was placed. Results Hemoglobin/Hematocrit: Hgb 13.0 g/dL (11.2-15.7) 01/01/22 07:45 Hct 38.4 % (36.0-46.0) 01/01/22 07:45 Abnormal Lab Findings: Abnormal Labs 12/31/21 01/01/22 10:05 07:45 Sodium 134 L 135 L ALT 13 L Alkaline Phosphatase 273 H 295 H Total Protein 6.2 L 6.2 L Albumin 2.2 L 2.2 L
[2022-01-02] MEDS: miSOPROStol 50 MCG TAB PO ×3 (15:31→23:45)
[2022-01-02] MEDS: Zolpidem 5 MG TAB 10 MG PO (23:46)
[2022-01-03] VITALS (311 sets, daily range): BP systolic 117–175; BP diastolic 60–105; PULSE 0–132; RESP 16–20; TEMP 36.1–37.1; O2SAT 93–99; BMI 40.6
--- NOTE | 2022-01-03 | POCSPONT_PTH ---
PATIENT: Deysi John LOC: OBS U#:[id number] AGE/SX: 36/F ROOM: OBS.303 RE12/30/[address]: Negra Taylor : 1985 BED: A DIS: 01/07/2022 SPEC #: [id number] RECD: 01/04/22 12:50 STATUS: STONE REQ #: [id number] COLIN: 01/03/22 00:[address]: Negra Taylor DEPT: Surgical Specimen RECD BY: Heather Starr ENTERED: 01/04/22 12:51 SP TYPE: POCSPONT FABBY DR: [place] Pang, SOTO Tissues: 1 - ,SPONTANEOUS Procedures: GROSS AND MICRO LEVEL 4 Comments: [id number]
[2022-01-03] MEDS: miSOPROStol 50 MCG TAB PO ×2 (04:55→17:41)
--- NOTE | 2022-01-03 08:16 | W.PM.OBNL1 ---
Date of service: 01/03/22 Time of Service: 08:16 Informed Consent Informed Consent: Induction of Labor (continuing pitocin induction vs. further ripening with cevical ripening with misoprostol) Pelvic Exam Dilation: 3 Effacement (%): 80 station: -2 Cervix Position: posterior Consistency: soft Vaginal Exam Presentation: Cephalic Contractions Monitor Mode: External Contraction Frequency(min): every 2-5 Contraction Duration(sec): 40-60 Intensity: Mild Fetus A Monitor: External (US) Heart Rate Baseline: 145 Variability: Moderate (6-25 BPM) Categories: Category II Accelerations: 15 X 15 Decelerations: Variable Amniotic Membrane Status: Intact Assessment and Plan Assessment and plan (1) Elective induction of labor planned: Status: Acute Assessment and plan: will plan to start pitocin at 0900 and anticipate . (2) Preeclampsia: Status: Acute Objective Temp Pulse Resp BP Pulse Ox 98.8 F 83 18 126/70 99 01/03/22 01:30 01/03/22 08:14 01/03/22 01:30 01/03/22 07:39 12/30/21 20:48 Laboratory Results WBC 9.97 10^3/uL (4.4-10.8) 01/01/22 07:45 RBC 4.19 10^6/uL (3.93-5.22) 01/01/22 07:45 Hgb 13.0 g/dL (11.2-15.7) 01/01/22 07:45 Hct 38.4 % (36.0-46.0) 01/01/22 07:45 MCV 91.6 fL (80-95) 01/01/22 07:45 MCH 31.0 pg (27.0-33.0) 01/01/22 07:45 MCHC 33.9 % (32.0-36.0) 01/01/22 07:45 RDW 13.2 % (11.7-14.6) 01/01/22 07:45 Plt Count 257 10^3/uL (130-400) 01/01/22 07:45 MPV 9.6 fL (8.0-11.0) 01/01/22 07:45 Sodium 135 mmol/L (136-145) L 01/01/22 07:45 Potassium 3.9 mmol/L (3.5-5.1) 01/01/22 07:45 Chloride 103 mmol/L (98-107) 01/01/22 07:45 Carbon Dioxide 21.9 mmol/L (21.0-32.0) 01/01/22 07:45 Anion Gap 10.1 mmol/L (3-11) 01/01/22 07:45 BUN 14 mg/dL (7-18) 01/01/22 07:45 Creatinine 0.7 mg/dL (0.55-1.02) 01/01/22 07:45 Estimated GFR/1.73 m2 >= 60.00 (mL/min/1.73m2) 01/01/22 07:45 Glucose 74 mg/dL (74-106) 01/01/22 07:45 Uric Acid 4.8 mg/dL (2.6-6.0) 01/01/22 07:45 Calcium 8.5 mg/dL (8.5-10.1) 01/01/22 07:45 Total Bilirubin 0.5 mg/dL (0.2-1.0) 01/01/22 07:45 AST 17 U/L (15-37) 01/01/22 07:45 ALT 13 U/L (14-59) L 01/01/22 07:45 Alkaline Phosphatase 295 U/L (46-116) H 01/01/22 07:45 Total Protein 6.2 g/dL (6.4-8.2) L 01/01/22 07:45 Albumin 2.2 g/dL (3.4-5.0) L 01/01/22 07:45 Subjective Patient Reports: No new Complaints Interval history since last seen: The cervical ripening balloon wasdeflated and removed at 2230 last night. Deysi slept well last night with timothy. She received 5 doses of misoprostol with the most recent being at 0500. She is experiencing mild discomfort and uses the nitrous oxide occasionally. There are occasional variable decelerations noted. B.P. has been 120-135/66-73 since 2099. 2+ pitting edema of feet and ankles. Reflexes 2+. Results Hemoglobin/Hematocrit: Hgb 13.0 g/dL (11.2-15.7) 01/01/22 07:45 Hct 38.4 % (36.0-46.0) 01/01/22 07:45 Abnormal Lab Findings: Abnormal Labs 12/31/21 01/01/22 10:05 07:45 Sodium 134 L 135 L ALT 13 L Alkaline Phosphatase 273 H 295 H Total Protein 6.2 L 6.2 L Albumin 2.2 L 2.2 L
[2022-01-03] MEDS: Acetaminophen 500 MG TAB 1000 MG PO (08:21)
[2022-01-03 09:14] LABS: HCT 39.4 % (36.0-46.0); HGB 13.6 g/dL (11.2-15.7); MCH 31.5 pg (27.0-33.0); MCHC 34.5 % (32.0-36.0); MCV 91.2 fL (80-95); MPV 10.1 fL (8.0-11.0); Platelet Count 251 10^3/uL (130-400); RBC 4.32 10^6/uL (3.93-5.22); RDW 13.1 % (11.7-14.6); RDW-SD 43.7 fL; WBC 13.79 10^3/uL (4.4-10.8)
[2022-01-03] MEDS: Oxytocin/Normal Saline 30 UNIT/500 ML BAG 2 UNITS IV (09:26)
[2022-01-03] MEDS: Normal Saline Flush 10 ML SYR IVP (09:27)
[2022-01-03] MEDS: Lactated Ringers 1,000 ML 125 ML IV ×3 (09:27→21:20)
[2022-01-03 09:32] LABS: ALT 12 U/L (14-59); AST 16 U/L (15-37); Albumin 2.1 g/dL (3.4-5.0); Alkaline Phosphatase 340 U/L (46-116); Anion Gap 10.2 mmol/L (3-11); BUN 13 mg/dL (7-18); Bilirubin, Total 0.5 mg/dL (0.2-1.0); CO2 21.8 mmol/L (21.0-32.0); CREATININE 0.8 mg/dL (0.55-1.02); Calcium 8.8 mg/dL (8.5-10.1); Chloride 103 mmol/L (98-107); Glucose 137 mg/dL (74-106); LDH 164 U/L (81-234); Potassium 3.8 mmol/L (3.5-5.1); Sodium 135 mmol/L (136-145); Total Protein 6.5 g/dL (6.4-8.2); Uric Acid 4.7 mg/dL (2.6-6.0)
--- NOTE | 2022-01-03 11:45 | W.PM.OBNL1 ---
Date of service: 01/03/22 Time of Service: 11:45 Informed Consent Informed Consent: Induction of Labor (continuing pitocin induction vs. further ripening with cevical ripening with misoprostol) Pelvic Exam Vaginal Exam Presentation: Cephalic Contractions Monitor Mode: External Contraction Frequency(min): 50-60 Contraction Duration(sec): every 2-4 Intensity: Mild Fetus A Monitor: External (US) Heart Rate Baseline: 145 Variability: Moderate (6-25 BPM) Categories: Category II Accelerations: 15 X 15 Decelerations: Variable Amniotic Membrane Status: Intact Assessment and Plan Assessment and plan (1) Elective induction of labor planned: Status: Acute Assessment and plan: continue to assess labor pattern. Anticipate NSVDcontinue to assess B.P. Dr. diane was notified of Deysi's status (2) Preeclampsia: Status: Acute Objective Abnormal lab results 01/03/22 01/03/22 Range/Units 08:55 08:55 WBC 13.79 H (4.4-10.8) 10^3/uL Sodium 135 L (136-145) mmol/L Glucose 137 H (74-106) mg/dL ALT 12 L (14-59) U/L Alkaline Phosphatase 340 H (46-116) U/L Albumin 2.1 L (3.4-5.0) g/dL Temp Pulse Resp BP Pulse Ox 98.2 F 99 H 18 138/64 99 01/03/22 09:37 01/03/22 11:42 01/03/22 01:30 01/03/22 09:37 12/30/21 20:48 Laboratory Results WBC 13.79 10^3/uL (4.4-10.8) H 01/03/22 08:55 RBC 4.32 10^6/uL (3.93-5.22) 01/03/22 08:55 Hgb 13.6 g/dL (11.2-15.7) 01/03/22 08:55 Hct 39.4 % (36.0-46.0) 01/03/22 08:55 MCV 91.2 fL (80-95) 01/03/22 08:55 MCH 31.5 pg (27.0-33.0) 01/03/22 08:55 MCHC 34.5 % (32.0-36.0) 01/03/22 08:55 RDW 13.1 % (11.7-14.6) 01/03/22 08:55 Plt Count 251 10^3/uL (130-400) 01/03/22 08:55 MPV 10.1 fL (8.0-11.0) 01/03/22 08:55 Sodium 135 mmol/L (136-145) L 01/03/22 08:55 Potassium 3.8 mmol/L (3.5-5.1) 01/03/22 08:55 Chloride 103 mmol/L (98-107) 01/03/22 08:55 Carbon Dioxide 21.8 mmol/L (21.0-32.0) 01/03/22 08:55 Anion Gap 10.2 mmol/L (3-11) 01/03/22 08:55 BUN 13 mg/dL (7-18) 01/03/22 08:55 Creatinine 0.8 mg/dL (0.55-1.02) 01/03/22 08:55 Estimated GFR/1.73 m2 >= 60.00 (mL/min/1.73m2) 01/03/22 08:55 Glucose 137 mg/dL (74-106) H 01/03/22 08:55 Uric Acid 4.7 mg/dL (2.6-6.0) 01/03/22 08:55 Calcium 8.8 mg/dL (8.5-10.1) 01/03/22 08:55 Total Bilirubin 0.5 mg/dL (0.2-1.0) 01/03/22 08:55 AST 16 U/L (15-37) 01/03/22 08:55 ALT 12 U/L (14-59) L 01/03/22 08:55 Alkaline Phosphatase 340 U/L (46-116) H 01/03/22 08:55 Lactate Dehydrogenase 164 U/L (81-234) 01/03/22 08:55 Total Protein 6.5 g/dL (6.4-8.2) 01/03/22 08:55 Albumin 2.1 g/dL (3.4-5.0) L 01/03/22 08:55 Patient ABO/Rh O Positive 01/03/22 08:55 Antibody Screen NEGATIVE 01/03/22 08:55 Subjective Patient Reports: No new Complaints Interval history since last seen: Pitocin is infusing at 10 mu/min. Deysi took a nap and reported mild discomfort. When she awoke, her membranes ruptured for a small amount of clear fluid. She got up to ambulate. B.P while ambulating is 167/97. Results Hemoglobin/Hematocrit: Hgb 13.6 g/dL (11.2-15.7) 01/03/22 08:55 Hct 39.4 % (36.0-46.0) 01/03/22 08:55 Abnormal Lab Findings: Abnormal Labs 12/31/21 01/01/22 01/03/22 10:05 07:45 08:55 WBC 13.79 H Sodium 134 L 135 L Glucose ALT 13 L Alkaline Phosphatase 273 H 295 H Total Protein 6.2 L 6.2 L Albumin 2.2 L 2.2 L 01/03/22 08:55 WBC Sodium 135 L Glucose 137 H ALT 12 L Alkaline Phosphatase 340 H Total Protein Albumin 2.1 L
--- NOTE | 2022-01-03 14:27 | ANES.PREOP_ITS ---
General Info Date of Service Date Performed: 01/03/22 Height: 5 ft 5 in Weight: 110.677 kg Body Mass Index (BMI): 40.6 Meds Allergies and Home Medications Allergies Allergy/AdvReac Type Severity Reaction Status Date / Time No Known Allergies Allergy Verified 12/30/21 22:51 Home Medication Medication Instructions Recorded glucosamine sulfate 500 mg tablet 500 mg PO DAILY 05/17/21 omega-3 fatty acids 1,000 mg 1,000 mg PO DAILY 05/17/21 capsule prenat.vits,vargas,fvp-kuzs-xovnh 1 tab PO DAILY 05/17/21 cholecalciferol (vitamin D3) 25 25 mcg PO DAILY 06/07/21 mcg (1,000 unit) capsule magnesium oxide 400 mg (241.3 mg 400 mg PO DAILY 10/18/21 magnesium) tablet diphenhydramine 25 2 tab PO QHS PRN tab 11/15/21 mg-acetaminophen 500 mg tablet Current Visit Medications: Current Medications Generic Name Dose Route Start Last Admin Trade Name Freq PRN Reason Stop Dose Admin Ringer's Solution 1,000 mls @ 125 mls/hr 01/01/22 16:30 01/02/22 07:15 IV 0 mls/hr INFUSION IFEANYI Infusion Sodium Chloride 500 mls @ 0 mls/hr 01/01/22 16:19 Saline 500ml Bag IV PRN PRN As Directed Oxytocin/Sodium Chloride 30 unit in 500 mls @ 2 mls/hr 01/01/22 16:30 01/02/22 07:15 Pitocin/Normal Saline IV 0 milliunits/min INFUSION IFEANYI 0 mls/hr Titration Protocol 2 MILLIUNITS/MIN Ringer's Solution 1,000 mls @ 125 mls/hr 01/03/22 08:30 01/03/22 09:27 IV 125 mls/hr INFUSION IFEANYI Administration Sodium Chloride 500 mls @ 0 mls/hr 01/03/22 08:26 Saline 500ml Bag IV PRN PRN As Directed Oxytocin/Sodium Chloride 30 unit in 500 mls @ 2 mls/hr 01/03/22 08:30 01/03/22 13:34 Pitocin/Normal Saline IV 16 milliunits/min INFUSION IFEANYI 16 mls/hr Titration Protocol 2 MILLIUNITS/MIN IV Miscellaneous Supplies 1 each 01/01/22 16:30 Iv Access IV DIRECTED IFEANYI IV Miscellaneous Supplies 1 each 01/03/22 08:30 Iv Access IV DIRECTED [facility] Misoprostol 50 mcg 01/02/22 20:30 01/03/22 09:27 Misoprostol 50 Mcg Tab PO Not Given Q4H [facility] Nalbuphine HCl 10 mg 01/03/22 14:24 Nalbuphine 10 Mg/Ml Amp SC 01/03/22 14:25 NOW ONE Sodium Chloride 0 ml 01/01/22 16:19 Normal Saline Flush 10 Ml Syr IVP PRN PRN Sodium Chloride 0 ml 01/03/22 08:26 01/03/22 09:27 Normal Saline Flush 10 Ml Syr IVP 10 ml PRN PRN Administration Terbutaline Sulfate 0.25 mg 12/30/21 21:40 Terbutaline 1 Mg/Ml Vial SC PRN PRN PFSH Active Problems Active Problems: Problem Status Onset Code Elective induction of labor planned Preeclampsia O14.90 Edema of both lower extremities R60.0 Proteinuria affecting in third trimester O12.13 Carpal tunnel syndrome during O26.899, G56.00 Other specified counseling Z71.89 Elderly primigravida in second trimester O09.512 Z34.90 History of alcohol use Z87.898 History of tobacco use Z87.891 Medical History Medical History (Updated 12/30/21 @ 21:46 by Negra Taylor CNM) Diabetes mellitus screening Missed menses Patient desires care Screening cholesterol level Tobacco Smoking/Tobacco Use Status: Former Tobacco Use Tobacco: How many years used: 10 Passive smoking exposure: Yes Second hand exposure: Yes Alcohol Alcohol Intake: former Year quit: 2019 Substance Use Substance use: Current Sobriety Substance use type: marijuana Details: also occassionally Hallucinogens Prental History History 1 Para 0 Hx # Term Pregnancies 0 Multiple births 0 Hx # Pregnancies 0 Ectopic pregnancies 0 AB induced 0 Hx Number of Living Children 0 AB spontaneous 0 Vital Signs and Lab Results Vital Signs Most Recent Vital Signs in EMR: Most Recent Vital Signs Temp Pulse Resp BP Pulse Ox 36.5 C 81 17 144/81 H 99 01/03/22 13:35 01/03/22 14:26 01/03/22 12:24 01/03/22 13:35 12/30/21 20:48 Lab Results Result Diagrams: 01/03/22 08:55 01/03/22 08:55 Blood Type / Crossmatch: Patient ABO/Rh O Positive 01/03/22 Antibody Screen NEGATIVE 01/03/22 Complete Blood Count: White Blood Count 13.79 10^3/uL (4.4-10.8) H 01/03/22 08:55 01/03/22 Red Blood Count 4.32 10^6/uL (3.93-5.22) 01/03/22 08:55 01/03/22 Hemoglobin 13.6 g/dL (11.2-15.7) 01/03/22 08:55 01/03/22 Hematocrit 39.4 % (36.0-46.0) 01/03/22 08:55 01/03/22 Platelet Count 251 10^3/uL (130-400) 01/03/22 08:55 01/03/22 Complete Metabolic Panel: Sodium Level 135 mmol/L (136-145) L 01/03/22 08:55 01/03/22 Potassium Level 3.8 mmol/L (3.5-5.1) 01/03/22 08:55 01/03/22 Chloride Level 103 mmol/L (98-107) 01/03/22 08:55 01/03/22 Carbon Dioxide Level 21.8 mmol/L (21.0-32.0) 01/03/22 08:55 01/03/22 Blood Urea Nitrogen 13 mg/dL (7-18) 01/03/22 08:55 01/03/22 Creatinine 0.8 mg/dL (0.55-1.02) 01/03/22 08:55 01/03/22 Estimated GFR/1.73 m2 >= 60.00 (mL/min/1.73m2) 01/03/22 08:55 01/03/22 Calcium Level 8.8 mg/dL (8.5-10.1) 01/03/22 08:55 01/03/22 Albumin 2.1 g/dL (3.4-5.0) L 01/03/22 08:55 01/03/22 Glucose Level 137 mg/dL (74-106) H 01/03/22 08:55 01/03/22 Liver Function Panel: Alanine Aminotransferase (ALT/SGPT) 12 U/L (14-59) L 01/03/22 08:55 01/03/22 Aspartate Amino Transf (AST/SGOT) 16 U/L (15-37) 01/03/22 08:55 01/03/22 Coagulation Panel: No Data to Display Cardiac Panel: No Data to Display Arterial Blood Gas: No Data to Display Venous Blood Gas: No Data to Display Pancreas Panel: No Data to Display Thyroid Panel: No Data to Display Infectious Disease: Coronavirus (COVID-19)(PCR) Negative (Negative) 12/30/21 13:05 12/30/21 Coronavirus 2019 Source Nasal/Nares 12/30/21 13:05 12/30/21 Blood Cultures: No Data to Display Toxicology Panel: Urine Amphetamines Screen Negative (Negative) 12/27/21 10:00 12/27/21 Urine Benzodiazepines Screen Negative (Negative) 12/27/21 10:00 12/27/21 Urine Barbiturates Screen Negative (Negative) 12/27/21 10:00 12/27/21 Urine Cocaine Screen Negative (Negative) 12/27/21 10:00 12/27/21 Urine Methadone Screen Negative (Negative) 12/27/21 10:00 12/27/21 Urine Opiates Screen Negative (Negative) 12/27/21 10:00 12/27/21 Ur Tricyclic Antidepressants Screen Negative (Negative) 12/27/21 10:00 12/27/21 Ur Tetrahydrocannabinol (THC) Scrn Negative (Negative) 12/27/21 10:00 12/27/21 Panel: No Data to Display Anesthesia Assessment and Plan Anesthesia History Personal History: No History of Anesthesia Complications Family History: No Family History of Anesthesia Complications Exercise Tolerance Exercise Tolerance: Metabolic Equivalents>4 Cardiac & Pulmonary Exam Cardiac Exam: Normal S1/S2 Heart Sounds Pulmonary Exam: Clear Bilateral Breath Sounds Implantable Cardiac Device Does patient have a Pacemaker or an ICD?: No Airway Exam Known Difficult Airway: No Mallampati Class: 2 Mouth Opening: Normal (> 3cm) Thyromental Distance: Greater than 3 cm Neck Range of Motion: Full ROM Neck Circumference: Normal Teeth Condition: Normal Dentition ASA Classification ASA Score: ASA 3 Emergency Case?: No NPO Status NPO Status: Full Stomach Status Status: Confirmed Anesthesia Plan Resuscitation Status: Full Code Anesthesia Technique: Epidural Anesthesia Airway Planned: Natural Airway Monitors Used: Standard Monitors
--- NOTE | 2022-01-03 15:09 | W.ANESNEU ---
Epidural/Spinal Catheter Date Performed: 01/03/22 Procedure Start: 14:40 Procedure Stop: 15:10 Requesting Provider: Negra Taylor Procedure Location: Obstetrics Reason Performed: Labor Epidural Standard Monitors Applied: Blood Pressure, SpO2 and See EMR for corresponding vital signs Patient Position: Sitting Sedation Given (Indicate Dose Given): No Sedation given Patient Mental Status: Awake Sterility: Hand Hygiene, Surgical Cap, Surgical Mask, Sterile Gloves and Chlorhexidine Procedure Location: L2-L3 Interspace Epidural Needle: Tuohy 18 Gauge Needle Length: 3.5 Inch Needle Approach: Midline Epidural Procedure: Skin Prepped, Sterile Drape Placed, 1% Lidocaine to skin and subcutaneous tissue with 25G needle, Tuohy Needle placed, ÁLVARO to Air Used, Epidural Catheter Placed, Negative CSF Flow and Tuohy Needle Removed Catheter Placed?: Catheter Placed Test Dose (Indicate Dose Given): 3ml 1.5% Lidocaine with 1:200K Epinephrine Given Loss of Resistance Depth (cm): 9 Catheter depth at skin (cm): 18 Dressing: Sorbaview Dressing Placed Epidural Provider Bolus (Indicate Dose Given): Total bolus dose given in 3-5 ml divided doses and Total Ropivacaine 0.1% with Fentanyl 2mcg/ml Given from pump (ml) Dose:: 9 mL Additives (Indicate Dose Given ): None Infusion Medication: No Infusion Started Block Level: T10 Paresthesia: None Ultrasound: Not Used Number of Attempts (See previous attempts in note section): 1 Procedure Tolerated: No Complications Procedure Outcome: Successful Performed By: [place] Garibay
--- NOTE | 2022-01-03 17:36 | PLAC_PTH ---
PATIENT: Deysi John LOC: OBS U#:[id number] AGE/SX: 36/F ROOM: OBS.303 RE12/30/[address]: Negra Taylor : 1985 BED: A DIS: 01/07/2022 SPEC #: [id number] RECD: 01/04/22 12:32 STATUS: STONE REQ #: [id number] COLIN: 01/03/22 17:[address]: Negra Taylor DEPT: Surgical Specimen RECD BY: Heather Starr ENTERED: 01/04/22 12:33 SP TYPE: PLAC OTHR DR: Montana Pang, SOTO Tissues: 1 - PLACENTA (3RD TRIMESTER) Procedures: GROSS AND MICRO LEVEL 5 Comments: [id number]
[2022-01-03] MEDS: Tranexamic Acid 1,000 MG/10 ML VIAL 1000 MG (17:47)
[2022-01-03] MEDS: Oxytocin/Normal Saline 30 UNIT/500 ML BAG 95 UNITS IV ×2 (18:25→21:19)
[2022-01-03] MEDS: Carboprost 250 MCG/ML AMP IM (18:25)
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
[2022-01-03] MEDS: ceFAZolin 2,000 MG in Normal Saline 100 ML 200 MG IVPB (18:58)
--- NOTE | 2022-01-03 19:17 | W.PM.OBNL1 ---
Date of service: 01/03/22 Time of Service: 16:30 Informed Consent Informed Consent: Induction of Labor (continuing pitocin induction vs. further ripening with cevical ripening with misoprostol) Pelvic Exam Dilation: 10 Effacement (%): 100 station: +2 Consistency: soft Pooling: Positive Comments: R Contractions Monitor Mode: External Contraction Frequency(min): every 20 Contraction Duration(sec): 60 Intensity: Moderate/Strong Fetus A Monitor: External (US) Heart Rate Baseline: 145 Presentation: Vertex Variability: Moderate (6-25 BPM) Categories: Category II Accelerations: 15 X 15 Decelerations: Variable Recurrence: Episodic Amniotic Membrane Status: Ruptured Rupture Method: Spontaneous Amniotic Fluid: Clear Amount: mod Date of Membrane Rupture: 01/03/22 Time of Membrane Rupture: 11:40 Assessment and Plan Assessment and plan (1) Elective induction of labor planned: Status: Acute Assessment and plan: Anticipate . Continue to assess maternal vital signs and FHR pattern. Dr. diane was notified by phone of the patient's status. (2) Preeclampsia: Status: Acute Objective Abnormal lab results 01/03/22 01/03/22 Range/Units 08:55 08:55 WBC 13.79 H (4.4-10.8) 10^3/uL Sodium 135 L (136-145) mmol/L Glucose 137 H (74-106) mg/dL ALT 12 L (14-59) U/L Alkaline Phosphatase 340 H (46-116) U/L Albumin 2.1 L (3.4-5.0) g/dL Temp Pulse Resp BP Pulse Ox 98.7 F 105 H 17 165/84 H 97 01/03/22 15:06 01/03/22 18:59 01/03/22 12:24 01/03/22 18:54 01/03/22 18:56 Laboratory Results WBC 13.79 10^3/uL (4.4-10.8) H 01/03/22 08:55 RBC 4.32 10^6/uL (3.93-5.22) 01/03/22 08:55 Hgb 13.6 g/dL (11.2-15.7) 01/03/22 08:55 Hct 39.4 % (36.0-46.0) 01/03/22 08:55 MCV 91.2 fL (80-95) 01/03/22 08:55 MCH 31.5 pg (27.0-33.0) 01/03/22 08:55 MCHC 34.5 % (32.0-36.0) 01/03/22 08:55 RDW 13.1 % (11.7-14.6) 01/03/22 08:55 Plt Count 251 10^3/uL (130-400) 01/03/22 08:55 MPV 10.1 fL (8.0-11.0) 01/03/22 08:55 Sodium 135 mmol/L (136-145) L 01/03/22 08:55 Potassium 3.8 mmol/L (3.5-5.1) 01/03/22 08:55 Chloride 103 mmol/L (98-107) 01/03/22 08:55 Carbon Dioxide 21.8 mmol/L (21.0-32.0) 01/03/22 08:55 Anion Gap 10.2 mmol/L (3-11) 01/03/22 08:55 BUN 13 mg/dL (7-18) 01/03/22 08:55 Creatinine 0.8 mg/dL (0.55-1.02) 01/03/22 08:55 Estimated GFR/1.73 m2 >= 60.00 (mL/min/1.73m2) 01/03/22 08:55 Glucose 137 mg/dL (74-106) H 01/03/22 08:55 Uric Acid 4.7 mg/dL (2.6-6.0) 01/03/22 08:55 Calcium 8.8 mg/dL (8.5-10.1) 01/03/22 08:55 Total Bilirubin 0.5 mg/dL (0.2-1.0) 01/03/22 08:55 AST 16 U/L (15-37) 01/03/22 08:55 ALT 12 U/L (14-59) L 01/03/22 08:55 Alkaline Phosphatase 340 U/L (46-116) H 01/03/22 08:55 Lactate Dehydrogenase 164 U/L (81-234) 01/03/22 08:55 Total Protein 6.5 g/dL (6.4-8.2) 01/03/22 08:55 Albumin 2.1 g/dL (3.4-5.0) L 01/03/22 08:55 Patient ABO/Rh O Positive 01/03/22 08:55 Antibody Screen NEGATIVE 01/03/22 08:55 Subjective Patient Reports: New Complaints Interval history since last seen: Deysi requested epidural analgesia. She had good effect and began feeling rectal pressure soon after the analgesia was in place. She was examined and was 8 cms dilated. At 1600 there was a period of elevated BP when she was lying on her right side on the dependent arm where the cuff was placed and it was 130/70 after placing on the other arm. There was a prolonged FHR decelleration at that time and the pitocin was turned to 9 mu/min and then turned off when variable decelerations continued. The FHR after that was 140s with occasional variable decellerations. and She began having an urge to push and began pushing at 1620 with excellent efforts. Results Hemoglobin/Hematocrit: Hgb 13.6 g/dL (11.2-15.7) 01/03/22 08:55 Hct 39.4 % (36.0-46.0) 01/03/22 08:55 Abnormal Lab Findings: Abnormal Labs 12/31/21 0201/03/22 10:05 07:45 08:55 WBC 13.79 H Sodium 134 L 135 L Glucose ALT 13 L Alkaline Phosphatase 273 H 295 H Total Protein 6.2 L 6.2 L Albumin 2.2 L 2.2 L 01/03/22 08:55 WBC Sodium 135 L Glucose 137 H ALT 12 L Alkaline Phosphatase 340 H Total Protein Albumin 2.1 L
--- NOTE | 2022-01-03 19:32 | W.OBDELIVERY ---
Date of service: 01/03/22 Time of Service: 19:32 OB Labor/ Delivery Information Baby A Delivery Delivery Method: Spontaneaous Presentation: Cephalic Cephalic Position: Vertex Cord Description-Baby A: 3 Vessels Amniotic Fluid: Clear Estimated Blood Loss: 1000 Delivery Outcome: Liveborn Infant Transferred: Other (skin to skin with father) Note: FHTs 140s during first stage of labor. FHTs 140s in second stage with variable decelerations. Deysi progressed to full dilation and began pushing well. Second stage huddle was done. Deysi pushed well lying on her right side. Spontaneous delivery of female delivered in APRYL position. Baby was placed on mother's abdomen and dried and stimulated. Spontaneous cry. A short cord was noted and a knot around the baby's left foot. The Cord was clamped and cut by the baby's father after it stopped pulsing. Providers Nurse Civil Process Server: Negra Taylor Sharepoint Architect: [place] Garibay Nurse: Felisha Camacho Nurse: Nicol Gonzalez Labor/Delivery Information Number of Babies in Womb: 1 Steroids Given: None Reason Steroids Not Administered: N/A Group Beta Strep: Negative Rubella Status: Immune Blood Type: O+ Varicella Immunity: Immune Born En Route: No Shoulder Dystocia: No Stages of Labor Onset of Labor Date: 12/30/21 Onset of Labor Time: 22:40 Complete Dilatation Date: 01/03/22 Complete Dilatation Time: 16:20 Labor - Stage 1 Duration: 96 hours and 0 minutes ROM Baby A: 01/03/22 ROM Baby A: 11:40 ROM Total Time- Baby A: [id number] Infant Delivery Date-Baby A: 01/03/22 Infant Delivery Time-Baby A: 17:24 Labor Stage 2 Duration: 1 hours and 4 minutes Placenta Delivery Date-Baby A: 01/03/22 Placenta Delivery Time-Baby A: 17:36 Labor-Stage 3 Duration: 12 minutes Total Length of Labor-Baby A: 90 hours and 44 minutes Placenta Cultured: No Placenta Status: Delivered Baby A Gender: Female Gestational Status: Early Term (37-38.6 wks) Gestational Age in Weeks/Days: 37 Weeks and 5 Days weight: 6 lb 6 oz Score-1 Minute Interval(Baby A) Heart Rate-1 minute: 100 BPM or Greater Respiratory Effort- 1 minute: Spontaneous/Strong Cry Muscle Tone-1 minute: Active Movement Reflex Response-1 minute: Prompt Response Color-1 minute: Pallor or Cyanosis Total Score-1 minute: 8 Score-5 Minute Interval(Baby A) Heart Rate- 5 minute: 100 BPM or Greater Respiratory Effort-5 minute: Spontaneous/Strong Cry Muscle Tone-5 minute: Active Movement Reflex Response-5 minute: Prompt Response Color-5 minute: Bluish Hands or Feet Total Score- 5 minute: 9 Procedure Procedures: Control of Hemorrhage (see post hemorrhage log) , none Interventions Repair of Laceration Type: Perineal , Laceration Extension: First Degree . Sponge Count Correct: No Sponges Placed in Vagina , Sharp Count Correct: Yes . Laceration Repair Note: subclitoral laceration not repaired and not bleeding Hemorrrhage Note Note Note: The placenta delivered spontaneously. There was heavy bright bleeding noted immediately after the placenta and pitocin 30 units IV was administered rapidly with the placenta delivery. Vigorous fundal massage was performed and the heavy bleeding continued. cytotec 800 mcg was given per rectum. The uterus firmed with massage but became boggy without massage. The perineum was inspected and a small perineal laceration was repaired with 3-0 vicryl suture. A second IV line was placed and Dr. Guerrero and the nursing scenic arts supervisor were paged at 1740 to the delivery room. There was very little bleeding from the perineal laceration. Due to continued bleeding, I performed a bimanual exam and extraction of 200 cc of clots. TXA 1,000 mg. was administered IV. The estimated bleeding in the drape was 800 cc after the extraction of clots. The uterus was firm after the clots were extracted. Dr. Guerrero arrived shortly after that and performed a bimanual under nitrous oxide analgesia for 100 cc of weighed clots. She ordered hemabate 250 mcg which I ordered. Dr. Guerrero assessed Deysi and recommended a D and C procedure. Deysi had diarrhea after the hemabate was administered. The baby did breastfeed briefly before Deysi went to the O.R. The placenta was inspected and there was a three vessel cord. There appears to be a small cotyledon missing from the placenta. Deysi and Danish requested to keep their placenta to take home. Per Dr. Gunderson's recommendation, the placenta was sent to pathology. Deysi and her were given a small piece of the cord to keep. Post hemorrhage log was completed with nicol Santana and Felisha Camacho. Hemorrhage Recognized Date Hemorrhage Recognized: 01/03/22 Time Hemorrhage Recognized: 17:36 Call for Help Date: 12/28/21 Time: 17:38 2nd RN in Room Date: 01/03/22 Time: 17:36 2nd RN: Felisha Camacho Provider in Room Date: 01/03/22 Time: 17:36 Provider: Negra Taylor Bimanual Uterine Compression Date: 01/03/22 Time: 17:40 RN Mobile Health Vehicle Operator Notified Date: 01/03/22 Time: 17:40
--- NOTE | 2022-01-03 20:47 | W.PM.OP ---
Date of service: 01/03/22 Time of Service: 20:47 Operative Note Operative Note DATE OF PROCEDURE: 01/03/22 PRE-OP DIAGNOSIS: hemorrhage, suspect retained placental tissue POST-OP DIAGNOSIS: same PROCEDURE: Exam under anesthesia, uterine curettage SURGEON: Rosario Guerrero ASSISTING SURGEON: Lena Gunderson ANESTHESIA TYPE: General LMA/ETT Refer to Anesthesia Record ESTIMATED BLOOD LOSS: 800 PATHOLOGY: other (Uterine contents) COMPLICATIONS: None Patient was transported to: PACU Patient's condition: stable Indications: Immediate hemorrhage, status post normal spontaneous vaginal delivery after induction of labor for preeclampsia with mild features. Suspect retained placental fragment Findings: Retained placental tissue Procedure Description: After evaluation on the [facility], , after a hemorrhage with 1000 cc and suspicion for retained placental tissue, decision was made for surgical exploration. Full informed consent was obtained for exam under anesthesia with uterine curettage. Patient was transported from the [facility] where she had received Pitocin, 1 dose of 800 mcg of misoprostol rectally, 1 dose of TXA . Exam on the [facility] revealed persistent clots in the lower uterine segment and beyond with inability to fully assess the endometrial cavity. Due to this, she was transported to the operating room where she was moved from a labor bed, 2 OR table. At the time of movement, she had a significant large gush of blood and clot of approximately 600 cc. Patient was placed in the modified dorsal lithotomy position after anesthesia had been administered and was prepped and draped in the usual fashion. Shaver catheter had been previously inserted and was draining clear yellow urine. Exam under anesthesia revealed a uterus that was firm at the fundus, however significant clot which was gently teased out of the lower uterine segment. This allowed exploration of the entire cavity of the uterus where moderate tissue was pulled from the fundus, and particularly below the cornual area. Tissue was fairly adherent. Speculum was inserted. A ring forcep was used to grasp the anterior lip of the cervix and with gentle sharp curettage with a banjo curette the entire cavity was cleared of all debris. Again the uterine cavity was felt and found to be free of tissue. The entire cervix was inspected and found to be free from laceration. Ring forcep was removed. With aggressive fundal massage the uterus became firm after a second dose of Hemabate, IV Pitocin, and patient did receive a second dose of TXA. Total intraoperative blood loss was approximately 800 cc. On reinspection, uterus was again found to be firm with a scant trickle of blood at best. Her previous first-degree perineal laceration had and was oversewn with a single stitch of 3-0 Vicryl in a subcuticular fashion and found to be hemostatic. At this point, with a firm uterus, and minimal bleeding, the patient was returned to the dorsal supine position. She awoke from anesthesia without difficulty. Throughout the course of her procedure, she did have profuse watery stools consistent with her Hemabate dosages. Patient's blood pressure was managed per anesthesia. Complications: None apparent EBL: 800 mL Findings: Adherent placental tissue particularly in the left cornual region Pathology: Uterine contents for examination.
[2022-01-03 21:04] LABS: HCT 35.3 % (36.0-46.0); HGB 11.7 g/dL (11.2-15.7); MCH 31.5 pg (27.0-33.0); MCHC 33.1 % (32.0-36.0); MCV 94.9 fL (80-95); MPV 9.9 fL (8.0-11.0); Platelet Count 272 10^3/uL (130-400); RBC 3.72 10^6/uL (3.93-5.22); RDW 13.2 % (11.7-14.6); RDW-SD 45.9 fL; WBC 23.13 10^3/uL (4.4-10.8)
[2022-01-03 21:14] LABS: ALT 14 U/L (14-59); AST 22 U/L (15-37); Albumin 1.9 g/dL (3.4-5.0); Alkaline Phosphatase 304 U/L (46-116); Anion Gap 9.7 mmol/L (3-11); BUN 16 mg/dL (7-18); Bilirubin, Total 0.3 mg/dL (0.2-1.0); CO2 22.3 mmol/L (21.0-32.0); CREATININE 0.9 mg/dL (0.55-1.02); Calcium 8.1 mg/dL (8.5-10.1); Chloride 104 mmol/L (98-107); Glucose 101 mg/dL (74-106); Potassium 4.8 mmol/L (3.5-5.1); Sodium 136 mmol/L (136-145); Total Protein 5.8 g/dL (6.4-8.2)
[2022-01-03 21:15] LABS: INR 0.9 (0.9-1.1); PTT Activated 24.3 sec (21.0-27.5); Prothrombin Time 9.3 sec (9.3-11.0)
[2022-01-03] MEDS: Loperamide 2 MG CAP PO (21:50)
[2022-01-04] VITALS (10 sets, daily range): BP systolic 104–147; BP diastolic 71–86; PULSE 99–117; RESP 16–20; TEMP 36.3–38.1; O2SAT 94–97
[2022-01-04] MEDS: Zolpidem 10 MG TAB PO (00:01)
[2022-01-04 00:24] LABS: Abs Immature Grans 0.15 10^3/uL (0.0-0.06); Absolute Neutrophil Count 19.12 10^3/uL (1.2-6.7); Basophils % 0.2; HCT 30.3 % (36.0-46.0); HGB 10.1 g/dL (11.2-15.7); Immature Grans % 0.7; Lymphocytes % 7.5; MCH 31.5 pg (27.0-33.0); MCHC 33.3 % (32.0-36.0); MCV 94.4 fL (80-95); MPV 9.5 fL (8.0-11.0); Monocytes % 3.1; Neutrophils % 88.5; Nucleated RBC 0 %; Platelet Count 232 10^3/uL (130-400); RBC 3.21 10^6/uL (3.93-5.22); RDW 13.2 % (11.7-14.6)
[2022-01-04 00:25] LABS: Absolute Basophil Count 0.04 10^3/uL (0.0-0.2); Absolute Lymphocyte Count 1.62 10^3/uL (1.2-3.4); Absolute Monocyte Count 0.67 10^3/uL (0.1-0.8)
[2022-01-04] MEDS: miSOPROStol 100 MCG TAB 600 MCG PO ×2 (04:00→12:36)
[2022-01-04] MEDS: Acetaminophen 325 MG TAB 650 MG PO ×2 (04:11→08:27)
--- NOTE | 2022-01-04 04:38 | NUR.NOTE ---
Nursing Note: VSS. Pt wanted bedpan, remained on bedpan [id number] no BM. Bleeding is scant. 1st dose 600mcg MIsoprostil given now as scheduled by Dr Guerrero.Pt given warm blankets and Tylenol for pain level 5/10.Pt sleeping after permission given to take spitty/gaggy baby to nursery for weight and bili check
--- NOTE | 2022-01-04 05:30 | OBPPV_ITS ---
Date of service: 01/04/22 Time of Service: 05:30 Assessment and Plan Assessment and plan (1) (normal spontaneous vaginal delivery): Status: Acute (2) hemorrhage: Status: Acute Assessment and plan: Careful monitoring of I&O and labs today. Increase activity slowly today. PO Cytotec scheduled today (3) Preeclampsia: Status: Acute (4) Edema of both lower extremities: Status: Acute (5) Proteinuria affecting in third trimester: Status: Acute Subjective Subjective Interval history: Vitals and labs reviewed. HGB 10 at Midnight. AM pending. Vitals stable, adequate I&O. Sleeping baby status: Doing well Exam Physical Exam Vital signs: Temp Pulse Resp BP Pulse Ox 98.2 F 103 H 18 133/86 95 01/04/22 04:00 01/04/22 04:00 01/04/22 04:00 01/04/22 04:00 01/04/22 04:00 Results Hemoglobin/Hematocrit: Hgb 10.1 g/dL (11.2-15.7) L 01/04/22 00:20 Hct 30.3 % (36.0-46.0) L 01/04/22 00:20 Abnormal Lab Findings: Abnormal Labs 12/31/21 01/01/22 01/03/22 10:05 07:45 08:55 WBC 13.79 H RBC Hgb Hct Absolute Neutrophils Sodium 134 L 135 L Glucose Calcium ALT 13 L Alkaline Phosphatase 273 H 295 H Total Protein 6.2 L 6.2 L Albumin 2.2 L 2.2 L Crossmatch 01/03/22 01/03/22 01/03/22 08:55 08:55 20:55 WBC RBC Hgb Hct Absolute Neutrophils Sodium 135 L Glucose 137 H Calcium 8.1 L ALT 12 L Alkaline Phosphatase 340 H 304 H Total Protein 5.8 L Albumin 2.1 L 1.9 L Crossmatch See Detail 01/03/22 01/04/22 20:55 00:20 WBC 23.13 H D 21.60 H RBC 3.72 L 3.21 L Hgb 10.1 L Hct 35.3 L 30.3 L Absolute Neutrophils 19.12 H Sodium Glucose Calcium ALT Alkaline Phosphatase Total Protein Albumin Crossmatch Hemorrrhage Note Hemorrhage Recognized Date Hemorrhage Recognized: 01/03/22 Time Hemorrhage Recognized: 17:36 Call for Help Date: 12/28/21 Time: 17:38 2nd RN in Room Date: 01/03/22 Time: 17:36 2nd RN: Felisha Camacho Provider in Room Date: 01/03/22 Time: 17:36 Provider: Negra Taylor Bimanual Uterine Compression Date: 01/03/22 Time: 17:40 RN Textile Coating Machine Operator Notified Date: 01/03/22 Time: 17:40 RN Textile Coating Machine Operator on Floor Date: 01/03/22 Time: 17:43 Textile Coating Machine Operator: Ankita Francis QBL Scale in Room Date: 01/03/22 Time: 17:40 OB Emergency Cart at Bedside Date: 01/03/22 Time: 17:40 Shaver Catheter Urinary Catheter Date of Insertion: 01/03/22 Time of insertion: 17:38 Inserted by: angel Oxygen Date: 01/03/22 Time: 18:00 Second Provider in Room Date: 01/03/22 Time: 18:00 Provider: Rosario Guerrero Total Blood Loss for PPH Event Quantitative Blood Loss: 1,000 Transported to OR Date: 01/03/22 Time: 19:10
--- NOTE | 2022-01-04 06:11 | NUR.NOTE ---
Nursing Note: Dr Guerrero checked in on patient about an hour ago but pt was asleep. Plan reviewed with and this RN. Lab drawing blood at this time.
[2022-01-04 06:41] LABS: Abs Immature Grans 0.14 10^3/uL (0.0-0.06); Absolute Basophil Count 0.06 10^3/uL (0.0-0.2); Absolute Lymphocyte Count 2.96 10^3/uL (1.2-3.4); Basophils % 0.3; HCT 24.8 % (36.0-46.0); HGB 8.3 g/dL (11.2-15.7); Immature Grans % 0.8; MCH 31.1 pg (27.0-33.0); MCHC 33.5 % (32.0-36.0); MCV 92.9 fL (80-95); MPV 10.2 fL (8.0-11.0); Monocytes % 5.4; Neutrophils % 77.5; Nucleated RBC 0 %; Platelet Count 221 10^3/uL (130-400); RBC 2.67 10^6/uL (3.93-5.22); RDW 13.2 % (11.7-14.6); RDW-SD 45.1 fL; WBC 18.48 10^3/uL (4.4-10.8)
[2022-01-04 06:45] LABS: Absolute Neutrophil Count 14.32 10^3/uL (1.2-6.7)
--- NOTE | 2022-01-04 11:39 | W.ANESPOSTOP ---
Postoperative Evaluation Date, Time and Location Date Performed: 01/04/22 Time Performed: 11:39 Patient Location: Obstetrics Vital Signs Most Recent Imported Vital Signs: Most Recent Vital Signs Temp Pulse Resp BP Pulse Ox 37.0 C 102 H 20 116/72 94 01/04/22 08:00 01/04/22 08:00 01/04/22 08:00 01/04/22 08:00 01/04/22 08:00 Pain Score Most Recent Pain Score: Most Recent Pain Score Pain Level [Abdomen] 4 01/04/22 08:00 Pain Level [Head] 0 12/31/21 15:08 Pain Level 4 01/04/22 08:00 Assessment Mental Status: Awake (Alert & Oriented to Patient Baseline) Airway and Respiratory Function: Patent airway with normal (patient baseline) respiratory exam Cardiovascular Function: Hemodynamically Stable Hydration Status: Adequately Hydrated Nausea & Vomiting: No Nausea or Vomiting Pain: Pt. Denies Any Pain Peripheral Nerve Block: Patient did not receive a nerve block
[2022-01-04] MEDS: Normal Saline Flush 10 ML SYR IVP (12:39)
--- NOTE | 2022-01-04 13:22 | W.PM.OBPNV1 ---
Date of service: 01/04/22 Time of Service: 13:22 Assessment and Plan Assessment and plan (1) (normal spontaneous vaginal delivery): Status: Acute Assessment and plan: formula feeding. (2) hemorrhage: Status: Acute Assessment and plan: Pt's H/H stabilizing. She is able to ambulate w/o dizziness. Urine out pt is stable. I have recommended that IV fluids be stopped and one of her IVs may be discontinued. Hemabate dosing will stop tonight. Check H/H in am. Qualifiers: hemorrhage type: third-stage Qualified Code(s): O72.0 - Third-stage hemorrhage (3) Preeclampsia: Status: Acute Assessment and plan: Pt's BP currently stable. Labs normal. Will continue to follow. Qualifiers: Trimester: third trimester Qualified Code(s): O14.93 - Unspecified pre-eclampsia, third trimester Subjective Subjective Interval history: PPD1 with retained placenta and manual extraction of remaining placenta in OR under GET. Serial H/H performed. Pt OOB today with assist. Shaver discontinued. Pt with satisfactory diuresis. Epidural placed during labor and left in place postop for pt comfort. Patient comments: Bowel Movement (diarrhea from Hemabate dosing both intra and postop) Patient's Mood: tired, processing events around delivery and PPH. baby status: Doing well, Bottle feeding well, Rooming in and Strong Bonding Observed (with both parents) [place] feeding status: Exclusively formula feeding Exam Physical Exam Vital signs: Temp Pulse Resp BP Pulse Ox 98.6 F 102 H 20 116/72 94 01/04/22 08:00 01/04/22 08:00 01/04/22 08:00 01/04/22 08:00 01/04/22 08:00 Vital Signs Reviewed: Yes Notable Details: Epidural in place at time of am VS. Constitutional Constitutional: no acute distress HEENT Exam HEENT Exam: Normal (facial edema. ) Neck Exam Neck Exam: Normal Respiratory Exam Respiratory Exam: Normal Cardiovascular Exam Cardiovascular Exam: Normal (Pulse 100 range at rest) Abdominal Exam Abdomen: Tender Comments: Pt had vigorous post fundal massage Fundal Exam Fundus: Below Umbilicus Rectal Exam Rectal Exam: Not Done Extremities Exam Extremity Exam: Edema (1+ bilateral) Skin Exam Skin Exam: Normal Neurological Exam Neurological Exam: Normal Psychiatric Exam Psychiatric Exam: Normal (Pt processing events around IOL and with PPH.) Results Hemoglobin/Hematocrit: Hgb 8.3 g/dL (11.2-15.7) L 01/04/22 06:10 Hct 24.8 % (36.0-46.0) L 01/04/22 06:10 Abnormal Lab Findings: Abnormal Labs 12/31/21 01/01/22 01/03/22 10:05 07:45 08:55 WBC 13.79 H RBC Hgb Hct Absolute Neutrophils Absolute Monocytes Sodium 134 L 135 L Glucose Calcium ALT 13 L Alkaline Phosphatase 273 H 295 H Total Protein 6.2 L 6.2 L Albumin 2.2 L 2.2 L Crossmatch 01/03/22 01/03/22 01/03/22 08:55 08:55 20:55 WBC RBC Hgb Hct Absolute Neutrophils Absolute Monocytes Sodium 135 L Glucose 137 H Calcium 8.1 L ALT 12 L Alkaline Phosphatase 340 H 304 H Total Protein 5.8 L Albumin 2.1 L 1.9 L Crossmatch See Detail 01/03/22 01/04/22 01/04/22 20:55 00:20 06:10 WBC 23.13 H D 21.60 H 18.48 H RBC 3.72 L 3.21 L 2.67 L Hgb 10.1 L 8.3 L Hct 35.3 L 30.3 L 24.8 L Absolute Neutrophils 19.12 H 14.32 H Absolute Monocytes 1.00 H Sodium Glucose Calcium ALT Alkaline Phosphatase Total Protein Albumin Crossmatch Procedure Procedures: Control of Hemorrhage (stable after removal of retained placenta. Pt does not need PRBC transfusion at this time) , Placental fragments to pathology / Retained Placenta Extraction (performed in OR under GET 01/03/22. Bleeding stable since the procedure.) , Placenta to pathology Hemorrrhage Note Hemorrhage Recognized Date Hemorrhage Recognized: 01/03/22 Time Hemorrhage Recognized: 17:36 Call for Help Date: 12/28/21 Time: 17:38 2nd RN in Room Date: 01/03/22 Time: 17:36 2nd RN: Felisha Camacho Provider in Room Date: 01/03/22 Time: 17:36 Provider: Negra Taylor Bimanual Uterine Compression Date: 01/03/22 Time: 17:40 RN Financial Services Rep Notified Date: 01/03/22 Time: 17:40 RN Financial Services Rep on Floor Date: 01/03/22 Time: 17:43 Financial Services Rep: Ankita Francis QBL Scale in Room Date: 01/03/22 Time: 17:40 OB Emergency Cart at Bedside Date: 01/03/22 Time: 17:40 Shaver Catheter Urinary Catheter Date of Insertion: 01/03/22 Time of insertion: 17:38 Inserted by: [email or web address] Oxygen Date: 01/03/22 Time: 18:00 Second Provider in Room Date: 01/03/22 Time: 18:00 Provider: Rosario Guerrero Total Blood Loss for PPH Event Quantitative Blood Loss: 1,000 Transported to OR Date: 01/03/22 Time: 19:10
--- NOTE | 2022-01-04 16:27 | OBPPV_ITS ---
Date of service: 01/04/22 Time of Service: 16:28 Assessment and Plan Assessment and plan (1) (normal spontaneous vaginal delivery): Status: Acute Assessment and plan: Temp elevation may be secondary to Misoprostol dosing, anemia. I doubt infectious etiology at this time. Will continue to take temperature q4hrs during the night. If another febrile episode occurs will consider BCx, Rx with antibiotics. (2) hemorrhage: Status: Acute Assessment and plan: Repeat serial cbc this evening. Bleeding stable. I have discontinued pm dose of Misoprostol. Qualifiers: hemorrhage type: third-stage Qualified Code(s): O72.0 - Third-stage hemorrhage Subjective Subjective Interval history: Pt has been OOB to toilet with assist after brasher out. Continues to void spontaneously: 8hr total ~ 2400cc. Placing daughter on breast, latching observed. Pt had episode of temp elevation Max 100.3 degrees F. three hours after Misoprostol 600mcg dose given. She appears non-toxic. I have ordered the remaining dose of Misoprostol held. Patient comments: Pain well controlled and Tolerating diet; no Bowel Movement Patient's Mood: Good, focused on . baby status: Doing well, Nursing well (good latch. Mom has been pumping colostrum) and Rooming in [place] feeding status: Breast and formula feeding Exam Physical Exam Vital signs: Temp Pulse Resp BP Pulse Ox 100.6 F H 99 H 20 134/80 94 01/04/22 15:45 01/04/22 15:45 01/04/22 15:45 01/04/22 15:45 01/04/22 08:00 Vital Signs Reviewed: Yes Notable Details: Temp elevation. Narrative: I have recommended holding final dose of Miso this evening. Will keep scheduled cbc this evening. Follow temp q4hrs. Constitutional Constitutional: no acute distress Neck Exam Neck Exam: Normal Respiratory Exam Respiratory Exam: Normal Cardiovascular Exam Cardiovascular Exam: Normal (continues with HR in 100 range) Abdominal Exam Abdomen: Other (minimal pain with palpation) Fundal Exam Fundus: Below Umbilicus and Firm Rectal Exam Rectal Exam: Not Done Extremities Exam Extremity Exam: Normal (SCDs in place.) Back/Spine/Pelvis Exam Back Exam: Normal Skin Exam Skin Exam: Normal Neurological Exam Neurological Exam: Normal (No h/a or visual changes.) Psychiatric Exam Psychiatric Exam: Normal Results Hemoglobin/Hematocrit: Hgb 8.3 g/dL (11.2-15.7) L 01/04/22 06:10 Hct 24.8 % (36.0-46.0) L 01/04/22 06:10 Abnormal Lab Findings: Abnormal Labs 12/31/21 01/01/22 01/03/22 10:05 07:45 08:55 WBC 13.79 H RBC Hgb Hct Absolute Neutrophils Absolute Monocytes Sodium 134 L 135 L Glucose Calcium ALT 13 L Alkaline Phosphatase 273 H 295 H Total Protein 6.2 L 6.2 L Albumin 2.2 L 2.2 L Crossmatch 01/03/22 01/03/22 01/03/22 08:55 08:55 20:55 WBC RBC Hgb Hct Absolute Neutrophils Absolute Monocytes Sodium 135 L Glucose 137 H Calcium 8.1 L ALT 12 L Alkaline Phosphatase 340 H 304 H Total Protein 5.8 L Albumin 2.1 L 1.9 L Crossmatch See Detail 01/03/22 01/04/22 01/04/22 20:55 00:20 06:10 WBC 23.13 H D 21.60 H 18.48 H RBC 3.72 L 3.21 L 2.67 L Hgb 10.1 L 8.3 L Hct 35.3 L 30.3 L 24.8 L Absolute Neutrophils 19.12 H 14.32 H Absolute Monocytes 1.00 H Sodium Glucose Calcium ALT Alkaline Phosphatase Total Protein Albumin Crossmatch Hemorrrhage Note Hemorrhage Recognized Date Hemorrhage Recognized: 01/03/22 Time Hemorrhage Recognized: 17:36 Call for Help Date: 12/28/21 Time: 17:38 2nd RN in Room Date: 01/03/22 Time: 17:36 2nd RN: Felisha Camacho Provider in Room Date: 01/03/22 Time: 17:36 Provider: Negra Taylor Bimanual Uterine Compression Date: 01/03/22 Time: 17:40 RN Instrumentation And Controls Technician Notified Date: 01/03/22 Time: 17:40 RN Instrumentation And Controls Technician on Floor Date: 01/03/22 Time: 17:43 Instrumentation And Controls Technician: Ankita MICHAUD Scale in Room Date: 01/03/22 Time: 17:40 OB Emergency Cart at Bedside Date: 01/03/22 Time: 17:40 Brasher Catheter Urinary Catheter Date of Insertion: 01/03/22 Time of insertion: 17:38 Inserted by: [email or web address] Oxygen Date: 01/03/22 Time: 18:00 Second Provider in Room Date: 01/03/22 Time: 18:00 Provider: Rosario Guerrero Total Blood Loss for PPH Event Quantitative Blood Loss: 1,000 Transported to OR Date: 01/03/22 Time: 19:10
[2022-01-04 18:17] LABS: Abs Immature Grans 0.11 10^3/uL (0.0-0.06); Absolute Basophil Count 0.08 10^3/uL (0.0-0.2); Absolute Eosinophil Count 0.14 10^3/uL (0.0-0.7); Absolute Neutrophil Count 9.34 10^3/uL (1.2-6.7); Basophils % 0.5; Eosinophils % 0.9; HCT 24.1 % (36.0-46.0); HGB 8.1 g/dL (11.2-15.7); Immature Grans % 0.7; Lymphocytes % 29.6; MCH 31.9 pg (27.0-33.0); MCHC 33.6 % (32.0-36.0); MCV 94.9 fL (80-95); MPV 9.4 fL (8.0-11.0); Monocytes % 6.1; Neutrophils % 62.2; Nucleated RBC 0 %; Platelet Count 213 10^3/uL (130-400); RBC 2.54 10^6/uL (3.93-5.22); RDW 13.6 % (11.7-14.6); RDW-SD 46.9 fL; WBC 15.02 10^3/uL (4.4-10.8)
[2022-01-04 18:19] LABS: Absolute Lymphocyte Count 4.45 10^3/uL (1.2-3.4); Absolute Monocyte Count 0.92 10^3/uL (0.1-0.8)
[2022-01-04] MEDS: Ibuprofen 600 MG TAB PO (21:40)
[2022-01-05 03:21] VITALS: BP 110/68; RESP 16; TEMP 36.6; O2SAT 97
[2022-01-05 04:30] VITALS: BP 130/81
[2022-01-05] MEDS: Ibuprofen 600 MG TAB PO ×2 (06:27→14:22)
--- NOTE | 2022-01-05 07:51 | OBPPV_ITS ---
Date of service: 01/05/22 Time of Service: 07:51 Assessment and Plan Assessment and plan (1) (normal spontaneous vaginal delivery): Status: Acute Assessment and plan: Patient is day #2 status post normal spontaneous vaginal delivery after labor induction due to preeclampsia. Delivery complicated by hemorrhage and retained placental fragments. (2) hemorrhage: Status: Acute Assessment and plan: Bleeding is stable and appropriate at this point. Hemoglobin has equilibrated at 8.1. She is asymptomatic from the standpoint. We will continue to monitor her vital signs. She will be up and ambulating today. My anticipation would be for discharge home potentially tomorrow, though she may stay as a border. We will monitor her vital signs closely due to significant uterine manipulation. Qualifiers: hemorrhage type: third-stage Qualified Code(s): O72.0 - Third-stage hemorrhage (3) Preeclampsia: Status: Acute Assessment and plan: Blood pressures have been stable at this point. We will continue to monitor her urine output, diuresis, and vital signs. Qualifiers: Trimester: third trimester Qualified Code(s): O14.93 - Unspecified pre- eclampsia, third trimester Subjective Subjective Interval history: Patient seen this morning, doing well. Overall, she feels like I was run over by a truck. She reports some generalized fatigue, no nausea or vomiting, no dizziness. Her bleeding is appropriate. Appetite is good. She is working on breast-feeding. The events of her hemorrhage were discussed today again. All questions answered. My anticipation would be for discharge tomorrow if continues to be stable. Patient comments: Pain well controlled and Tolerating diet Patient's Mood: Appropriate baby status: Doing well and Strong Bonding Observed Exam Physical Exam Vital signs: Temp Pulse Resp BP Pulse Ox 97.9 F 117 H 16 130/81 97 01/05/22 03:21 01/04/22 23:30 01/05/22 03:21 01/05/22 04:30 01/05/22 03:21 HEENT Exam HEENT Exam: Normal Respiratory Exam Respiratory Exam: Normal Cardiovascular Exam Cardiovascular Exam: Normal Abdominal Exam Abdomen: Tender Fundal Exam Fundus: Below Umbilicus and Firm Extremities Exam Extremity Exam: Edema (2+, symmetric bilaterally); negative Calf Tenderness Skin Exam Skin Exam: Normal Psychiatric Exam Psychiatric Exam: Normal Results Hemoglobin/Hematocrit: Hgb 8.1 g/dL (11.2-15.7) L 01/04/22 18:10 Hct 24.1 % (36.0-46.0) L 01/04/22 18:10 Abnormal Lab Findings: Abnormal Labs 12/31/21 01/01/22 01/03/22 10:05 07:45 08:55 WBC 13.79 H RBC Hgb Hct Absolute Neutrophils Absolute Lymphocytes Absolute Monocytes Sodium 134 L 135 L Glucose Calcium ALT 13 L Alkaline Phosphatase 273 H 295 H Total Protein 6.2 L 6.2 L Albumin 2.2 L 2.2 L Crossmatch 01/03/22 01/03/22 01/03/22 08:55 08:55 20:55 WBC RBC Hgb Hct Absolute Neutrophils Absolute Lymphocytes Absolute Monocytes Sodium 135 L Glucose 137 H Calcium 8.1 L ALT 12 L Alkaline Phosphatase 340 H 304 H Total Protein 5.8 L Albumin 2.1 L 1.9 L Crossmatch See Detail 01/03/22 01/04/22 01/04/22 20:55 00:20 06:10 WBC 23.13 H D 21.60 H 18.48 H RBC 3.72 L 3.21 L 2.67 L Hgb 10.1 L 8.3 L Hct 35.3 L 30.3 L 24.8 L Absolute Neutrophils 19.12 H 14.32 H Absolute Lymphocytes Absolute Monocytes 1.00 H Sodium Glucose Calcium ALT Alkaline Phosphatase Total Protein Albumin Crossmatch 01/04/22 18:10 WBC 15.02 H RBC 2.54 L Hgb 8.1 L Hct 24.1 L Absolute Neutrophils 9.34 H Absolute Lymphocytes 4.45 H Absolute Monocytes 0.92 H Sodium Glucose Calcium ALT Alkaline Phosphatase Total Protein Albumin Crossmatch Hemorrrhage Note Hemorrhage Recognized Date Hemorrhage Recognized: 01/03/22 Time Hemorrhage Recognized: 17:36 Call for Help Date: 12/28/21 Time: 17:38 2nd RN in Room Date: 01/03/22 Time: 17:36 2nd RN: Felisha Camacho Provider in Room Date: 01/03/22 Time: 17:36 Provider: Negra Taylor Bimanual Uterine Compression Date: 01/03/22 Time: 17:40 RN Transportation Supervisor Notified Date: 01/03/22 Time: 17:40 RN Transportation Supervisor on Floor Date: 01/03/22 Time: 17:43 Transportation Supervisor: Ankita Penny QBL Scale in Room Date: 01/03/22 Time: 17:40 OB Emergency Cart at Bedside Date: 01/03/22 Time: 17:40 Shaver Catheter Urinary Catheter Date of Insertion: 01/03/22 Time of insertion: 17:38 Inserted by: [email or web address] Oxygen Date: 01/03/22 Time: 18:00 Second Provider in Room Date: 01/03/22 Time: 18:00 Provider: Rosario Guerrero Total Blood Loss for PPH Event Quantitative Blood Loss: 1,000 Transported to OR Date: 01/03/22 Time: 19:10
[2022-01-05 08:00] VITALS: BP 148/87; PULSE 92; RESP 16; TEMP 36.8; O2SAT 97
[2022-01-05 12:36] VITALS: BP 131/85; PULSE 92; RESP 16; TEMP 37; O2SAT 97
[2022-01-05] MEDS: Acetaminophen 325 MG TAB 650 MG PO (16:57)
[2022-01-05 17:39] VITALS: BP 129/77
[2022-01-05 23:57] VITALS: BP 132/91; PULSE 90; RESP 16; TEMP 36.8; O2SAT 98
[2022-01-06] VITALS (8 sets, daily range): BP systolic 122–159; BP diastolic 75–106; PULSE 85–97; RESP 16; TEMP 36.8–37; O2SAT 96–98
[2022-01-06] MEDS: Ibuprofen 600 MG TAB PO ×3 (05:00→23:31)
[2022-01-06] MEDS: Labetalol 100 MG TAB PO ×2 (08:13→08:42)
--- NOTE | 2022-01-06 08:42 | W.PM.OBPNV1 ---
Date of service: 01/06/22 Time of Service: 08:43 Assessment and Plan Assessment and plan (1) (normal spontaneous vaginal delivery): Status: Acute Assessment and plan: Routine post care (2) hemorrhage: Status: Acute Assessment and plan: Stable, Normal lochia Qualifiers: hemorrhage type: third-stage Qualified Code(s): O72.0 - Third-stage hemorrhage (3) Preeclampsia: Status: Acute Assessment and plan: Elevated BP this AM. Will check labs, begin Labetalol. Frequent re-evaluation Qualifiers: Trimester: third trimester Qualified Code(s): O14.93 - Unspecified pre-eclampsia, third trimester (4) Edema of both lower extremities: Status: Acute Assessment and plan: COmpressionostockings in place Subjective Subjective Interval history: Patient seen this AM with significantly elevated BP. No headache or constitutional symptoms. Some frustration with breast feeding and bonding. Feeling overwhelmed Patient comments: Pain well controlled and Tolerating diet Patient's Mood: Frustrated [place] baby status: Doing well and Strong Bonding Observed; no Nursing well (working on latch and feeding plan) feeding status: Exclusively breast feeding Exam Physical Exam Vital signs: Temp Pulse Resp BP Pulse Ox 98.2 F 90 16 152/98 H 98 01/06/22 08:00 01/06/22 08:00 01/06/22 08:00 01/06/22 08:23 01/05/22 23:57 Vital Signs Reviewed: Yes Notable Details: Elevated blood pressures this AM Constitutional Constitutional: no acute distress, obese and cooperative Detailed HEENT Exam Eye: Present EOMI and PERRL Detailed Respiratory Exam Comments: Normal respirations Cardiovascular Exam Cardiovascular Exam: Normal Abdominal Exam Comments: Soft, non-tender Fundal Exam Fundus: Below Umbilicus and Firm Extremities Exam Extremity Exam: Edema (2+ B/L); negative Calf Tenderness Neurological Exam Neurological Exam: Normal Psychiatric Exam Psychiatric Exam: Normal DetailedPsychiatric Exam Psych Exam: Normal Thougth Process, Cooperative, Good Insight and Depressed (Mild) Results Hemoglobin/Hematocrit: Hgb 8.1 g/dL (11.2-15.7) L 01/04/22 18:10 Hct 24.1 % (36.0-46.0) L 01/04/22 18:10 Abnormal Lab Findings: Abnormal Labs 12/31/21 01/01/2222 10:05 07:45 08:55 WBC 13.79 H RBC Hgb Hct Absolute Neutrophils Absolute Lymphocytes Absolute Monocytes Sodium 134 L 135 L Glucose Calcium ALT 13 L Alkaline Phosphatase 273 H 295 H Total Protein 6.2 L 6.2 L Albumin 2.2 L 2.2 L Crossmatch 01/03/22 01/03/22 01/03/22 08:55 08:55 20:55 WBC RBC Hgb Hct Absolute Neutrophils Absolute Lymphocytes Absolute Monocytes Sodium 135 L Glucose 137 H Calcium 8.1 L ALT 12 L Alkaline Phosphatase 340 H 304 H Total Protein 5.8 L Albumin 2.1 L 1.9 L Crossmatch See Detail 01/03/22 01/04/22 01/04/22 20:55 00:20 06:10 WBC 23.13 H D 21.60 H 18.48 H RBC 3.72 L 3.21 L 2.67 L Hgb 10.1 L 8.3 L Hct 35.3 L 30.3 L 24.8 L Absolute Neutrophils 19.12 H 14.32 H Absolute Lymphocytes Absolute Monocytes 1.00 H Sodium Glucose Calcium ALT Alkaline Phosphatase Total Protein Albumin Crossmatch 01/04/22 18:10 WBC 15.02 H RBC 2.54 L Hgb 8.1 L Hct 24.1 L Absolute Neutrophils 9.34 H Absolute Lymphocytes 4.45 H Absolute Monocytes 0.92 H Sodium Glucose Calcium ALT Alkaline Phosphatase Total Protein Albumin Crossmatch Hemorrrhage Note Hemorrhage Recognized Date Hemorrhage Recognized: 01/03/22 Time Hemorrhage Recognized: 17:36 Call for Help Date: 12/28/21 Time: 17:38 2nd RN in Room Date: 01/03/22 Time: 17:36 2nd RN: Felisha Camacho Provider in Room Date: 01/03/22 Time: 17:36 Provider: Negra Taylor Bimanual Uterine Compression Date: 01/03/22 Time: 17:40 RN [employer] Scout Notified Date: 01/03/22 Time: 17:40 RN [employer] Scout on Floor Date: 01/03/22 Time: 17:43 [employer] Scout: Ankita MICHAUD Scale in Room Date: 01/03/22 Time: 17:40 OB Emergency Cart at Bedside Date: 01/03/22 Time: 17:40 Shaver Catheter Urinary Catheter Date of Insertion: 01/03/22 Time of insertion: 17:38 Inserted by: [email or web address] Oxygen Date: 01/03/22 Time: 18:00 Second Provider in Room Date: 01/03/22 Time: 18:00 Provider: Rosario Guerrero Total Blood Loss for PPH Event Quantitative Blood Loss: 1,000 Transported to OR Date: 01/03/22 Time: 19:10
[2022-01-06] MEDS: Hamamelis Leaf/Glycerin 100 EACH BOX PR (09:07)
[2022-01-06] MEDS: Docusate Sodium 100 MG CAP PO (09:07)
[2022-01-06 09:33] LABS: Abs Immature Grans 0.16 10^3/uL (0.0-0.06); Absolute Eosinophil Count 0.35 10^3/uL (0.0-0.7); Absolute Lymphocyte Count 2.65 10^3/uL (1.2-3.4); Basophils % 0.5; Eosinophils % 3.2; HCT 25.1 % (36.0-46.0); HGB 8.3 g/dL (11.2-15.7); Immature Grans % 1.5; Lymphocytes % 24.2; MCH 30.9 pg (27.0-33.0); MCHC 33.1 % (32.0-36.0); MCV 93.3 fL (80-95); MPV 9.6 fL (8.0-11.0); Monocytes % 4.7; Neutrophils % 65.9; Nucleated RBC 0 %; Platelet Count 269 10^3/uL (130-400); RBC 2.69 10^6/uL (3.93-5.22); RDW 13.5 % (11.7-14.6); WBC 10.95 10^3/uL (4.4-10.8)
[2022-01-06 09:46] LABS: ALT 19 U/L (14-59); AST 24 U/L (15-37); Albumin 2.1 g/dL (3.4-5.0); Alkaline Phosphatase 190 U/L (46-116); Anion Gap 6.7 mmol/L (3-11); BUN 15 mg/dL (7-18); Bilirubin, Total 0.2 mg/dL (0.2-1.0); CO2 28.3 mmol/L (21.0-32.0); CREATININE 0.7 mg/dL (0.55-1.02); Calcium 8.7 mg/dL (8.5-10.1); Chloride 105 mmol/L (98-107); Glucose 100 mg/dL (74-106); Potassium 3.9 mmol/L (3.5-5.1); Sodium 140 mmol/L (136-145); Total Protein 6.1 g/dL (6.4-8.2)
[2022-01-06 09:47] LABS: Absolute Basophil Count 0.05 10^3/uL (0.0-0.2); Absolute Monocyte Count 0.51 10^3/uL (0.1-0.8); Absolute Neutrophil Count 7.22 10^3/uL (1.2-6.7)
[2022-01-06] MEDS: Labetalol 100 MG TAB 200 MG PO (20:34)
[2022-01-06] MEDS: Acetaminophen 325 MG TAB 650 MG PO (20:52)
[2022-01-07 03:32] VITALS: BP 149/91
[2022-01-07 06:32] VITALS: BP 135/85
[2022-01-07] MEDS: Docusate Sodium 100 MG CAP PO (07:56)
[2022-01-07] MEDS: Labetalol 100 MG TAB 200 MG PO (07:56)
[2022-01-07 07:57] VITALS: BP 157/93; PULSE 78; RESP 16; TEMP 37.1; O2SAT 98
--- NOTE | 2022-01-07 08:50 | W.PM.OBPNV1 ---
Date of service: 01/07/22 Time of Service: 08:50 Assessment and Plan Assessment and plan (1) (normal spontaneous vaginal delivery): Status: Acute Assessment and plan: Patient is day #3 status post normal spontaneous vaginal delivery followed by a significant hemorrhage with retained placental fragment for which she was taken to the operating room. Her had been complicated by preeclampsia which warranted delivery at 37 weeks. Overall, she is doing well. Her bleeding has subsided. Hemoglobin is stable. Blood pressure has stabilized with the use of oral antihypertensives. She will be discharged home on labetalol, 200 mg twice daily. She will have close follow-up. (2) hemorrhage: Status: Acute Assessment and plan: Stable Qualifiers: hemorrhage type: third-stage Qualified Code(s): O72.0 - Third-stage hemorrhage (3) Preeclampsia: Status: Acute Assessment and plan: Appropriate diuresis, mild elevation in blood pressure which responded nicely to oral antihypertensives Qualifiers: Trimester: third trimester Qualified Code(s): O14.93 - Unspecified pre-eclampsia, third trimester (4) Edema of both lower extremities: Status: Acute Assessment and plan: Lower extremity edema is improved today. We will continue to encourage ambulation. Monitor diuresis. Close follow-up Subjective Subjective Interval history: Patient seen and examined this morning, overall doing significantly better than the last 24 hours. She is feeling more comfortable and confident with her ability to feed her baby with breastmilk. She does have a mild headache this morning. Her lochia is physiologic. Her bonding is good. Encouragement was given. Patient's Mood: Doing well [place] baby status: Doing well, Rooming in and Strong Bonding Observed feeding status: Exclusively breast feeding and [place] Feeding Exam Physical Exam Vital signs: Temp Pulse Resp BP Pulse Ox 98.7 F 78 16 157/93 H 98 01/07/22 07:57 01/07/22 07:57 01/07/22 07:57 01/07/22 07:57 01/07/22 07:57 Vital Signs Reviewed: Yes Notable Details: Mild elevation in blood pressure prior to labetalol. Narrative: Mild elevation of blood pressure prior to labetalol. We will continue 200 mg p.o. twice daily upon discharge. Careful follow-up Constitutional Constitutional: no acute distress and cooperative HEENT Exam HEENT Exam: Normal Neck Exam Neck Exam: Normal Respiratory Exam Respiratory Exam: Normal Abdominal Exam Abdomen: Other (Soft, nontender, nondistended) Fundal Exam Fundus: Below Umbilicus and Firm Extremities Exam Extremity Exam: Edema (2+ bilateral); negative Calf Tenderness, Redness or Warm to Touch Skin Exam Skin Exam: Normal Neurological Exam Neurological Exam: Normal DetailedPsychiatric Exam Psych Exam: Normal Affect, Normal Thougth Process, Cooperative, Good Insight and Good Judgement Results Hemoglobin/Hematocrit: Hgb 8.3 g/dL (11.2-15.7) L 01/06/22 09:04 Hct 25.1 % (36.0-46.0) L 01/06/22 09:04 Abnormal Lab Findings: Abnormal Labs 12/31/21 01/01/22 01/03/22 10:05 07:45 08:55 WBC 13.79 H RBC Hgb Hct Absolute Neutrophils Absolute Lymphocytes Absolute Monocytes Sodium 134 L 135 L Glucose Calcium ALT 13 L Alkaline Phosphatase 273 H 295 H Total Protein 6.2 L 6.2 L Albumin 2.2 L 2.2 L Crossmatch 01/03/22 01/03/22 01/03/22 08:55 08:55 20:55 WBC RBC Hgb Hct Absolute Neutrophils Absolute Lymphocytes Absolute Monocytes Sodium 135 L Glucose 137 H Calcium 8.1 L ALT 12 L Alkaline Phosphatase 340 H 304 H Total Protein 5.8 L Albumin 2.1 L 1.9 L Crossmatch See Detail 01/03/22 01/04/22 01/04/22 20:55 00:20 06:10 WBC 23.13 H D 21.60 H 18.48 H RBC 3.72 L 3.21 L 2.67 L Hgb 10.1 L 8.3 L Hct 35.3 L 30.3 L 24.8 L Absolute Neutrophils 19.12 H 14.32 H Absolute Lymphocytes Absolute Monocytes 1.00 H Sodium Glucose Calcium ALT Alkaline Phosphatase Total Protein Albumin Crossmatch 01/04/22 01/06/22 01/06/22 18:10 09:04 09:04 WBC 15.02 H 10.95 H RBC 2.54 L 2.69 L Hgb 8.1 L 8.3 L Hct 24.1 L 25.1 L Absolute Neutrophils 9.34 H 7.22 H Absolute Lymphocytes 4.45 H Absolute Monocytes 0.92 H Sodium Glucose Calcium ALT Alkaline Phosphatase 190 H Total Protein 6.1 L Albumin 2.1 L Crossmatch Hemorrrhage Note Hemorrhage Recognized Date Hemorrhage Recognized: 01/03/22 Time Hemorrhage Recognized: 17:36 Call for Help Date: 12/28/21 Time: 17:38 2nd RN in Room Date: 01/03/22 Time: 17:36 2nd RN: Felisha Camacho Provider in Room Date: 01/03/22 Time: 17:36 Provider: Negra Taylor Bimanual Uterine Compression Date: 01/03/22 Time: 17:40 RN Fire Behavior Analyst Notified Date: 01/03/22 Time: 17:40 RN Fire Behavior Analyst on Floor Date: 01/03/22 Time: 17:43 Fire Behavior Analyst: Ankita DickensBL Scale in Room Date: 01/03/22 Time: 17:40 OB Emergency Cart at Bedside Date: 01/03/22 Time: 17:40 Shaver Catheter Urinary Catheter Date of Insertion: 01/03/22 Time of insertion: 17:38 Urinary Catheter Size: 16 Balloon Size: 10 Inserted by: angel Oxygen Date: 01/03/22 Time: 18:00 Second Provider in Room Date: 01/03/22 Time: 18:00 Provider: Rosario Guerrero Total Blood Loss for PPH Event Quantitative Blood Loss: 1,000 Labs Drawn Labs Drawn: Yes Transported to OR Date: 01/03/22 Time: 19:10
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
[2022-01-07 10:53] VITALS: BP 135/89
[2022-01-07] MEDS: Ibuprofen 600 MG TAB PO (10:55)
[2022-01-07] MEDS: Butalbital/Acetaminophen/Caffeine 50/325/40 TAB PO (11:04)
== END 2022-01-07 17:18 | disposition home or self-care (01) | DRG 798 ==
PROVIDERS: Nurse Anesthetist, Certified Registered; Obstetrics & Gynecology; Admitting Provider Advanced Practice Midwife; PCP Nurse Practitioner Family; Visit Provider Advanced Practice Midwife
PROC: 10D17ZZ Extraction of Products of Conception, Retained, Via Natural or Artificial Opening (ICD-10-PCS; CPT 59160; principal; 2022-01-03 18:40)
DX: O14.94 Unspecified pre-eclampsia, complicating childbirth (principal); Z37.0 Single live birth; O72.0 Third-stage hemorrhage; Z3A.37 37 weeks gestation of pregnancy; O70.0 First degree perineal laceration during delivery; O12.05 Gestational edema, complicating the puerperium
CPT/HCPCS: 59160; 36415; 80053; 85027; 86850; 86900; 86901; 86920; 88305; 83615; 84550; 85025; 85610; 85730; 88307; J0690; J1100; J2370; J2405; J2704; J3490

== ENCOUNTER 2022-01-09 07:52 | Outpatient (CLI) | payer MEDICAID, SELFPAY ==
[2022-01-09 10:15] VITALS: BP 115/69
== END 2022-01-09 07:53 | disposition home or self-care (01) ==
LOC: BCD 07:53
PROVIDERS: PCP Nurse Practitioner Family; Visit Provider Obstetrics & Gynecology
DX: Z34.90 Encounter for supervision of normal pregnancy, unspecified, unspecified trimester (principal)
CPT/HCPCS: 99211

== ENCOUNTER 2022-03-08 19:00 | Outpatient (REF) | payer MEDICAID, SELFPAY ==
[2022-03-10 11:25] LABS: COVID-19 RT-PCR UVMMC Result Negative (Negative)
== END 2022-03-08 19:01 | disposition home or self-care (01) ==
LOC: LBN 19:00
PROVIDERS: PCP Nurse Practitioner Family; Visit Provider Nurse Practitioner Family
DX: Z20.822 Contact with and (suspected) exposure to COVID-19 (principal)
CPT/HCPCS: U0003

== ENCOUNTER → 2022-09-05 01:41 | Outpatient (CLI) | payer MEDICAID, SELFPAY ==
--- NOTE | 2022-09-05 07:30 | DI.RAD_ITS ---
Exam(s) XR CHEST 2V PA LATERAL EXAM: XR CHEST 2V PA LATERAL CLINICAL HISTORY: Chronic cough for 4 months,r05.3 TECHNIQUE: 2D digital imaging was performed. COMPARISON: No exams were available for comparison FINDINGS: HEART: Normal size. Aorta: PULMONARY VASCULATURE: Normal. LUNGS: Clear. PLEURAL SPACE: No pleural effusion or pneumothorax. BONE:Unremarkable for age. IMPRESSION: No acute abnormality. DATA REPOSITORY: RADIATION DOSE DELIVERED:
== END ==
PROVIDERS: PCP Nurse Practitioner Family; Visit Provider Nurse Practitioner Family
DX: R05.3 Chronic cough (principal)
CPT/HCPCS: 71046

== ENCOUNTER → 2024-06-27 02:49 | Outpatient (CLI) | payer BC, SELFPAY ==
--- NOTE | 2024-06-27 08:45 | DI.MRI_ITS ---
Exam(s) MR BRAIN WO EXAM: MR BRAIN WO CLINICAL HISTORY: r/o mass, ?IIH, positional headache, R51.0 TECHNIQUE: Multiplanar multisequence MRI of the brain was performed. COMPARISON: No exams were available for comparison FINDINGS: VENTRICLES AND EXTRA AXIAL SPACES: Normal in size and morphology for the patient's age. MIDLINE SHIFT: None. CEREBRAL PARENCHYMA: No focus of restricted diffusion to suggest acute infarct. No space-occupying le kenny identified. HEMORRHAGE: None. BRAINSTEM/CEREBELLUM: Normal. CALVARIUM: Normal. VISUALIZED PARANASAL SINUSES/MASTOIDS:Clear. KASHIA OF SEN: Normal flow void. PITUITARY GLAND: The pituitary gland has a normal appearance. OTHER FINDINGS: No definite venous sinus thrombosis is identified. If further evaluation of the veno us system is required, an MR V should be considered. The cerebellar tonsils appear grossly unremarka ble. The orbits and retro-orbital soft tissues appear grossly unremarkable. IMPRESSION: Unremarkable MRI of the brain. DATA REPOSITORY:
== END ==
PROVIDERS: PCP Nurse Practitioner Family; Visit Provider Nurse Practitioner Adult Health
DX: R51.0 Headache with orthostatic component, not elsewhere classified (principal)
CPT/HCPCS: 70551

== ENCOUNTER 2025-06-12 09:20 | Emergency (ER) | payer OTHER, SELFPAY ==
[2025-06-12 09:27] VITALS: BP 121/83; PULSE 89; RESP 20; TEMP 37.9; O2SAT 98
--- NOTE | 2025-06-12 09:30 | DI.RAD_ITS ---
Exam(s) XR CHEST 2V PA LATERAL EXAM: XR CHEST 2V PA LATERAL CLINICAL HISTORY: cough TECHNIQUE: 2D digital imaging was performed of the chest. Two images were obtained. PA and lateral views were obtained. COMPARISON: CR XR CHEST 2V PA LATERAL from 09/05/2022 FINDINGS: MEDIASTINUM: Normal. HEART: Normal. PULMONARY VASCULATURE: Normal. LUNGS: There is an infiltrate with air bronchograms in the left upper lobe consistent with pneumonia. The right lung is clear. PLEURAL SPACE: No pleural effusion or pneumothorax. BONE:Within normal limits for the patient's age. OTHER FINDINGS:Normal. IMPRESSION: Left upper lobe pneumonia. DATA REPOSITORY: RADIATION DOSE DELIVERED:
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
[2025-06-12] MEDS: Ibuprofen 600 MG TAB PO (10:32)
[2025-06-12] MEDS: Azithromycin 250 MG TAB 500 MG PO (10:58)
[2025-06-12] MEDS: Amoxicillin 500 MG CAP 1000 MG PO (10:58)
[2025-06-12 11:39] VITALS: BP 129/57; PULSE 83; RESP 16; O2SAT 98
[2025-06-12 11:42] LABS: COVID-19 PCR Negative (Negative); RSV PCR Negative (Negative)
== END 2025-06-12 11:45 | disposition home or self-care (01) ==
PROVIDERS: Emergency Provider Student in an Organized Health Care Education/Training Program; PCP Nurse Practitioner Family
DX: J18.9 Pneumonia, unspecified organism (principal); R50.9 Fever, unspecified; R11.0 Nausea; R10.9 Unspecified abdominal pain
CPT/HCPCS: 99284 ×2; 87637; 71046